=== PATIENT | male | born 1980 | race Caucasian/White ===

== ENCOUNTER 2019-12-01 04:36 | Emergency (ER) | payer OTHER, SELFPAY ==
[2019-12-01 05:04] VITALS: BP 130/88; PULSE 65; RESP 18; TEMP 35.8; O2SAT 97; BMI 23.4
[2019-12-01 05:12] VITALS: BP 130/88; PULSE 65; RESP 18; TEMP 35.8; O2SAT 97
--- NOTE | 2019-12-01 05:26 | ED.PSYCH ---
HPI - Psych General Chief Complaint: Psychiatric Symptoms Stated Complaint: SI WITH PLAN Time Seen by Provider: 12/01/19 05:24 Source: patient Mode of arrival: ambulatory Limitations: no limitations History of Present Illness HPI Narrative: This is a 38-year-old male who presents via EMS with complaints of suicidal ideation and his plan would be to overdose on drugs. He states that he has been admitted previously for depression as well as suicide attempt and thinks that this was maybe a month ago. This evening he took 2 naps and continued to take his psychiatric medication and then felt nauseous and had some nonbloody/ nonbilious vomiting. Related Data Allergies Allergy/AdvReac Type Severity Reaction Status Date / Time No Known Allergies Allergy Unverified 10/26/19 14:49 [No Known Allergies*] Review of Systems Review of Systems: Pertinent positives and negatives as stated in HPI 10 point review systems is otherwise negative. PMFSH Past Medical History Source: nursing notes reviewed Social History Social History Alcohol intake: current Alcohol intake frequency: a few times a month Alcohol type: hard liquor Smoking Status: Current every day smoker Smoked in Last 30 Days: Yes Use of substances other than those prescribed or required for medical reasons: No Advance Directives: No Advance Directives Information Provided: No Physical Exam Vital Signs: Vital Signs: Vital Signs Temp Pulse Resp BP Pulse Ox 12/01/19 06:45 97.9 F 75 18 116/60 97 12/01/19 05:12 96.5 F L 65 18 130/88 97 12/01/19 05:04 96.5 F L 65 18 130/88 97 Body Mass Index 23.4 VITAL SIGNS: Reviewed. GENERAL: Well developed, well nourished, in no acute distress. HEAD: Normocephalic/atraumatic, EYES: PERRLA, EOMI intact without pain, no nystagmus/pallor/icterus noted EARS: Ext canals without abnormality, TMs non-bulging and non-erythematous NOSE: Nares patent bilateral OROPHARYNX: no oral lesions noted, posterior pharynx clear and non-erythematous without noted tonsillar enlargement/erythema/exudates NECK: Supple, no adenopathy LUNGS: Normal breath sounds. No adventitious sounds or accessory muscle use. SpO2<97> CARDIOVASCULAR: Regular rate and rhythm without noted murmurs, no JVD or lower extremity edema. ABDOMEN: Soft, non-tender, non-distended with bowel sounds. No rigidity. No guarding. No palpable masses or hernias noted MUSCULOSKELETAL: No tenderness, deformities, or effusions noted on gross inspection. EXTREMITIES: No cyanosis, clubbing or edema. SKIN: Inspection of the skin reveals no rashes, ulcerations, jaundice, pallor, or petechiae. NEUROLOGIC: Alert and oriented x 4. Strength and sensation to light touch were grossly intact x 4. Course Course Course Narrative: This is a 38-year-old male with history and clinical presentation consistent with depression and suicidal ideation. Patient was evaluated for lithium level abnormality and otherwise medically cleared for further evaluation by the crisis team after review of all investigations. [place] levels are noted to be subtherapeutic. MDM - Psych Restraints Face to Face Assessment: Face to Face Assessment: Current Situation: After assessment of the patient, a review of the pertinent medical record and a discussion with nursing staff, I feel the patient requires a restrain intervention. Reaction To: [] Medical Condition: [] Behavioral State: [] Continued Need: [] Lab Data Result diagrams: 12/01/19 06:11 12/01/19 06:11 Labs: Lab Results 12/01/19 12/01/19 12/01/19 Range/Units 06:11 06:11 06:11 WBC 10.0 (4.8-10.8) X10*3/uL RBC 4.96 (4.60-5.80) X10*6/uL Hgb 15.7 (14.0-18.0) g/dl Hct 47.1 (42-52) % MCV 95.0 (80-98) fL MCH 31.7 (27.0-33.0) pg MCHC 33.3 (31.0-36.0) g/dl RDW 12.9 (11.0-16.0) % Plt Count 244 (160-400) X10*3/uL MPV 10.7 (9.4-12.4) fL Immature Gran % (Auto) 0.4 (0.0-0.4) % Neut % (Auto) 82.3 H (45-73) % Lymph % (Auto) 11.6 L (20-40) % [place] % (Auto) 4.2 (2-11) % Eos % (Auto) 1.2 (0-4) % Baso % (Auto) 0.3 (0-2) % Lymph # (Auto) 1.2 (1.2-4.9) X10*3/uL [place] # (Auto) 0.4 (0.1-1.2) X10*3/uL Eos # (Auto) 0.1 (0.0-0.4) X10*3/uL Baso # (Auto) 0.0 (0.0-0.2) X10*3/uL Abs Immat Gran (auto) 0.04 H (0.00-0.03) X10*3/uL Absolute Neuts (auto) 8.2 (2.0-8.3) X10*3/uL Absolute Nucleated RBC 0.000 (0.0-0.012) X10*3/uL Nucleated RBC % (auto) 0.0 (0.0-0.2) /100WBC Sodium 142 (135-145) mmol/L Potassium 4.1 (3.3-5.1) mmol/l Chloride 106 (96-108) mmol/L Carbon Dioxide 26 (22-29) mmol/L Anion Gap 14 (12-20) BUN 13 (9-16) mg/dL Creatinine 0.98 (0.5-1.4) mg/dL Estim Creat Clear Calc 100.1 Estimated GFR > 60 Random Glucose 108 (60-115) mg/dL Calcium 9.1 (8.4-10.2) mg/dL Total Bilirubin 0.5 (0.0-1.0) mg/dL AST 20 (5-37) U/L ALT 39 (0-40) U/L Alkaline Phosphatase 38 L (39-117) U/L Total Protein 7.3 (6.5-8.0) g/dL Albumin 4.7 (3.5-5.0) g/dL TSH 1.23 (0.32-4.0) mIU/mL Salicylates < 5.0 L (15-30) mg/dL Acetaminophen < 1 (<30) mcg/mL [place] 0.53 L (0.60-1.20) mmol/L Ethyl Alcohol mg/dL 12/01/19 Range/Units 06:12 WBC (4.8-10.8) X10*3/uL RBC (4.60-5.80) X10*6/uL Hgb (14.0-18.0) g/dl Hct (42-52) % MCV (80-98) fL MCH (27.0-33.0) pg MCHC (31.0-36.0) g/dl RDW (11.0-16.0) % Plt Count (160-400) X10*3/uL MPV (9.4-12.4) fL Immature Gran % (Auto) (0.0-0.4) % Neut % (Auto) (45-73) % Lymph % (Auto) (20-40) % [place] % (Auto) (2-11) % Eos % (Auto) (0-4) % Baso % (Auto) (0-2) % Lymph # (Auto) (1.2-4.9) X10*3/uL [place] # (Auto) (0.1-1.2) X10*3/uL Eos # (Auto) (0.0-0.4) X10*3/uL Baso # (Auto) (0.0-0.2) X10*3/uL Abs Immat Gran (auto) (0.00-0.03) X10*3/uL Absolute Neuts (auto) (2.0-8.3) X10*3/uL Absolute Nucleated RBC (0.0-0.012) X10*3/uL Nucleated RBC % (auto) (0.0-0.2) /100WBC Sodium (135-145) mmol/L Potassium (3.3-5.1) mmol/l Chloride (96-108) mmol/L Carbon Dioxide (22-29) mmol/L Anion Gap (12-20) BUN (9-16) mg/dL Creatinine (0.5-1.4) mg/dL Estim Creat Clear Calc Estimated GFR Random Glucose (60-115) mg/dL Calcium (8.4-10.2) mg/dL Total Bilirubin (0.0-1.0) mg/dL AST (5-37) U/L ALT (0-40) U/L Alkaline Phosphatase (39-117) U/L Total Protein (6.5-8.0) g/dL Albumin (3.5-5.0) g/dL TSH (0.32-4.0) mIU/mL Salicylates (15-30) mg/dL Acetaminophen (<30) mcg/mL [place] (0.60-1.20) mmol/L Ethyl Alcohol 126 mg/dL
[2019-12-01] MEDS: Ibuprofen 400 MG TABLET PO (06:17)
[2019-12-01 06:20] LABS: MANUAL DIFF FLAG NO
[2019-12-01 06:21] LABS: Basophils Percent Auto 0.3 % (0-2); Eosinophils Absolute Auto 0.1 X10*3/uL (0.0-0.4); Eosinophils Percent Auto 1.2 % (0-4); Hematocrit 47.1 % (42-52); Hemoglobin 15.7 g/dl (14.0-18.0); Imm Gran Abs Auto 0.04 X10*3/uL (0.00-0.03); Imm Gran Pct Auto 0.4 % (0.0-0.4); Lymphocytes Absolute Auto 1.2 X10*3/uL (1.2-4.9); Lymphocytes Percent Auto 11.6 % (20-40); Mean Corpuscular HGB Conc 33.3 g/dl (31.0-36.0); Mean Corpuscular Hemoglobin 31.7 pg (27.0-33.0); Mean Platelet Volume 10.7 fL (9.4-12.4); Monocytes Absolute Auto 0.4 X10*3/uL (0.1-1.2); Monocytes Percent Auto 4.2 % (2-11); Neutrophils Absolute Auto 8.2 X10*3/uL (2.0-8.3); Neutrophils Percent Auto 82.3 % (45-73); Platelet Count 244 X10*3/uL (160-400); Red Blood Count 4.96 X10*6/uL (4.60-5.80); Red Cell Distribution Width 12.9 % (11.0-16.0)
[2019-12-01 06:41] LABS: Lithium 0.53 mmol/L (0.60-1.20)
[2019-12-01 06:44] LABS: Ethanol 126 mg/dL
[2019-12-01 06:45] VITALS: BP 116/60; PULSE 75; RESP 18; TEMP 36.6; O2SAT 97
[2019-12-01 06:50] LABS: Acetaminophen LAB < 1 mcg/mL (<30); Alanine Aminotransferase 39 U/L (0-40); Albumin Level 4.7 g/dL (3.5-5.0); Alkaline Phosphatase 38 U/L (39-117); Anion Gap 14 (12-20); Aspartate Amino Transferase 20 U/L (5-37); Bilirubin Total 0.5 mg/dL (0.0-1.0); Blood Urea Nitrogen 13 mg/dL (9-16); Calcium 9.1 mg/dL (8.4-10.2); Carbon Dioxide 26 mmol/L (22-29); Chloride 106 mmol/L (96-108); Creatinine Clr Calc Pharmacy 100.1; Estimated Glomerular Filt Rate > 60; Glucose Random 108 mg/dL (60-115); Potassium 4.1 mmol/l (3.3-5.1); Salicylate < 5.0 mg/dL (15-30); Sodium 142 mmol/L (135-145); Total Protein 7.3 g/dL (6.5-8.0)
--- NOTE | 2019-12-01 07:03 | PC.NURSE ---
pt appears to be resting in bed att, rr even/unlabored, skin wpd.
[2019-12-01 07:10] LABS: Thyroid Stimulating Hormone 1.23 mIU/mL (0.32-4.0)
--- NOTE | 2019-12-01 08:58 | PC.NURSE ---
vs updated. pt sts i havent eaten in days , pt offered breakfast tray and other options. pt sts i hope they dont send me home cause im so depressed ill definitely kill myself . wctm.
[2019-12-01 09:10] VITALS: BP 121/57; PULSE 83; RESP 18; TEMP 37.1; O2SAT 97
[2019-12-01 09:27] LABS: Glucose Urine UA NEG (NEG); Leukocyte Esterase Urine NEG (NEG); Nitrite Urine NEG (NEG); Specific Gravity - Urine >= 1.030 (1.005-1.025); Urine Blood NEG (NEG); Urine Ketones NEG (NEG); Urine Protein NEG (NEG-TRACE)
[2019-12-01] MEDS: LORazepam 1 MG TABLET 2 MG PO ×2 (09:27→18:22)
[2019-12-01 09:28] LABS: Appearance Urine CLEAR; Color Urine YELLOW
--- NOTE | 2019-12-01 09:32 | PC.NURSE ---
medicated per emar, toleraing po w/o issue
[2019-12-01 09:49] LABS: Amphetamine Screen Urine Not Detected (Not Detect); Barbiturates, Urine Not Detected (Not Detect); Benzodiazepines Screen Urine Not Detected (Not Detect); Cannabinoid Screen Urine POSITIVE (Not Detect); Cocaine Screen Urine Not Detected (Not Detect); Opiate Screen Urine Not Detected (Not Detect); Phencyclidine Screen Urine Not Detected (Not Detect)
[2019-12-02 06:45] VITALS: BP 123/85; PULSE 72; RESP 17; TEMP 36.6; O2SAT 99
--- NOTE | 2019-12-02 07:19 | PC.NURSE ---
Report received from ROSANA Lange. Pt resting, resp unlabored.
--- NOTE | 2019-12-02 08:06 | PC.NURSE ---
Pt awoke upset, tearful. States he was having nightmares. States he no longer wants to live because he is tired of being afraid. Staff in w/ pt, Dr lopez notified pt states Ativan is helpful.
[2019-12-02] MEDS: LORazepam 1 MG TABLET 2 MG PO (08:23)
[2019-12-02 09:28] VITALS: BP 100/65; PULSE 65; RESP 16; TEMP 36.6; O2SAT 100
--- NOTE | 2019-12-02 15:17 | PC.NURSE ---
Pt out of room, affect anxious, pt requesting Ativan for anxiety. Pt states he would consider taking one of the medications prescribed to him- pt stated yes. provider notified.
[2019-12-02 15:59] VITALS: BP 105/72; PULSE 84; RESP 20; TEMP 36.6; O2SAT 98
[2019-12-02] MEDS: hydrOXYzine HCL 50 MG TABLET PO (17:46)
--- NOTE | 2019-12-02 19:25 | PC.NURSE ---
Patients in bed appears sleeping, no distress observed/reported, respiration +/=/non-labored bilaterally, per report patient is to be reevaluated by [facility] in the morning, seems like patient is not in agreement with Respite option provided by the [facility]. Will continue to monitor.
[2019-12-02] MEDS: risperiDONE 1 MG TABLET PO (22:01)
[2019-12-02] MEDS: Lithium Carbonate 300 MG TABLET 600 MG PO (22:02)
--- NOTE | 2019-12-02 22:13 | PC.NURSE ---
Patient just got woken up for HS PO medication, patient gets startle easily, denied distress, back to bed, will continue to monitor.
--- NOTE | 2019-12-03 07:21 | PC.NURSE ---
Report received from ROSANA Lange. Pt resting, resp unlabored.
[2019-12-03] MEDS: risperiDONE 1 MG TABLET PO (07:28)
[2019-12-03] MEDS: FLUoxetine HCl 20 MG CAPSULE 40 MG PO (07:28)
[2019-12-03] MEDS: Lithium Carbonate 300 MG TABLET 600 MG PO (07:29)
[2019-12-03] MEDS: Folic Acid 1 MG TABLET PO (07:29)
--- NOTE | 2019-12-03 07:37 | PC.NURSE ---
Pt awoke crying, stating that he feels anxious, requesting Ativan. Verbal reassurance offered, am medications given early.
[2019-12-03] MEDS: lamoTRIgine 100 MG TABLET 200 MG PO (07:38)
[2019-12-03 07:53] VITALS: BP 120/74; PULSE 61; RESP 17; TEMP 36.6; O2SAT 97
--- NOTE | 2019-12-03 08:32 | PC.NURSE ---
Pt evaluate by bronson
--- NOTE | 2019-12-03 10:19 | PC.NURSE ---
Pt seen by N, to be discharged per n. Pt tearful but cooperative w/ plan. Pt given list of resources from [facility], and a bus pass.
== END 2019-12-03 10:45 | disposition left against medical advice (07) ==
PROVIDERS: Emergency Provider Student in an Organized Health Care Education/Training Program; PCP Nurse Practitioner Family
DX: F31.9 Bipolar disorder, unspecified (principal); R45.851 Suicidal ideations; F10.10 Alcohol abuse, uncomplicated; Y90.6 Blood alcohol level of 120-199 mg/100 ml; F17.200 Nicotine dependence, unspecified, uncomplicated
CPT/HCPCS: 36415; 80053; 80178; 80307; 80320; 81003; 84443; 85025; 99285; G0480

== ENCOUNTER 2020-05-28 00:11 | Emergency (ER) | payer OTHER, SELFPAY ==
--- NOTE | 2020-05-28 00:26 | ED.BACK ---
HPI - Back Pain/Injury General Chief Complaint: Anxiety Stated Complaint: low back pain Time Seen by Provider: 05/28/20 00:23 Source: patient and EMS Mode of arrival: EMS Limitations: no limitations History of Present Illness HPI Narrative: 39 yo male taking his friend's daily methadone for 3 months stopped taking it 2 days ago unknown amount he feel anxious and like he is withdrawing now elicited complaint: back pain Pertinent past history: prior back pain Onset (ago): year(s) Timing: constant Severity: moderate Similar Symptoms Previously: Yes Quality: dull Location: lumbar spine Radiation: none Relieving factors: none Associated symptoms: other (methadone withdrawal ) Work related injury: No Related Data Home Medications Medication Instructions Recorded Confirmed fluoxetine 40 mg PO DAILY 12/02/19 12/02/19 folic acid 1 mg PO DAILY 12/02/19 12/02/19 lamotrigine [Lamictal] 200 mg PO DAILY 12/02/19 12/02/19 lithium carbonate 600 mg PO BID 12/02/19 12/02/19 risperidone [Risperdal] 1 mg PO BID 12/02/19 12/02/19 Previous Rx's Medication Instructions Recorded fluoxetine 40 mg PO DAILY #30 cap NS 12/02/19 folic acid 1 mg PO DAILY #30 tab NS 12/02/19 lamotrigine 200 mg PO DAILY #30 tab NS 12/02/19 lithium carbonate 600 mg PO BID #120 cap 12/02/19 lithium carbonate 600 mg PO BID #120 cap NS 12/02/19 risperidone 1 mg PO TID #90 tab NS 12/02/19 thiamine HCl (vitamin B1) 100 mg PO DAILY #30 tab NS 12/02/19 Allergies Allergy/AdvReac Type Severity Reaction Status Date / Time No Known Allergies Allergy Unverified 10/26/19 14:49 [No Known Allergies*] Review of Systems Review of Systems: Constitutional : No Weight loss, No Fever, No Chills, ENT/Mouth : No Hearing loss, No Ear Pain, No Nasal Congestion, No Sinus Pain, No Hoarseness, No sore throat, No Rhinorrhea, No Swallowing Difficulty Cardiovascular : No Chest Pain, No SOB Respiratory : No Cough, No Dyspnea Gastrointestinal : No Nausea, No Vomiting, No Diarrhea, No abdominal Pain, No Hematochezia, No Melena Genitourinary : No Dysuria, No Urinary Frequency, No Hematuria, No Urinary Incontinence, Musculoskeletal : positive back pain Skin : No Skin Lesions, No rash Neuro : No Weakness, No Numbness, No Paresthesias, no loss of bowel or bladder incontinence, no saddle anesthesia Psych: + anxiety All other systems reviewed and are negative PMF Past Medical History Medical History (Updated 05/28/20 @ 01:07 by Sharri Garcia DO) Chronic back pain Depression Social History Social History Alcohol intake: current Alcohol intake frequency: does not drink Alcohol type: hard liquor Smoking Status: Current every day smoker Use of substances other than those prescribed or required for medical reasons: Yes Substance Use Type: Marijuana Advance Directives: No Physical Exam Vital Signs: Vital Signs: Last Vital Signs Temp 98.9 F 05/28/20 00:29 Pulse 76 05/28/20 00:29 Resp 15 05/28/20 00:29 BP 128/80 05/28/20 00:29 Pulse Ox 97 05/28/20 00:29 Body Mass Index 21.2 Appearance: Alert. Oriented X3. No acute distress. Anxious Eyes: Pupils equal, round and reactive to light. ENT: Pharynx normal. Neck: Normal inspection. Neck supple. CVS: Normal heart rate and rhythm. Pulses normal. Respiratory: No respiratory distress. Breath sounds normal. Abdomen: Soft and nontender. Skin: Skin warm and dry. Normal skin color. Normal skin turgor. Extremities: No lower extremity edema. No calf ttp Neuro: Oriented X 3. No motor deficit. No sensory deficit. Course Course Course Narrative: CARE team to refer to comprehensive clinic in AM MDM - Back Pain/Injury MDM Narrative Medical decision making narrative: 39 yo male with anxiety, chronic back pain here with anxiety due to using methadone from a friend unknown daily amount for 3 months and then stopped taking it two days ago c/o feeling very sick and anxious - would consider detox, PO ativan and CARE team consult ordered Discharge Plan Discharge Clinical Impression: Acute anxiety, Methadone withdrawal Patient Disposition: Home, Self-Care Instructions: Narcotic Withdrawal (ED) Additional Instructions: return to ED for any worsening symptoms or concerns 72 hours from last methadone dose suboxone can be started Prescriptions: No Action lithium carbonate tablet 600 mg PO BID RF: 0 fluoxetine 40 mg Capsule 40 mg PO DAILY RF: 0 lamotrigine [Lamictal] 200 mg Tablet 200 mg PO DAILY RF: 0 folic acid 1 mg Tablet 1 mg PO DAILY RF: 0 risperidone [Risperdal] 1 mg Tablet 1 mg PO BID RF: 0 risperidone 1 mg tablet 1 mg PO TID Qty: 90 RF: 0 lithium carbonate 300 mg capsule 600 mg PO BID Qty: 120 RF: 0 thiamine HCl (vitamin B1) 100 mg tablet 100 mg PO DAILY Qty: 30 RF: 0 folic acid 1 mg tablet 1 mg PO DAILY Qty: 30 RF: 0 lamotrigine 200 mg tablet 200 mg PO DAILY Qty: 30 RF: 0 fluoxetine 40 mg capsule 40 mg PO DAILY Qty: 30 RF: 0 lithium carbonate 300 mg capsule 600 mg PO BID Qty: 120 RF: 0 Referrals: Nancy Lee MD [Physician] - 1 day (any provider walk in between -)
[2020-05-28 00:29] VITALS: BP 128/80; PULSE 76; RESP 15; TEMP 37.2; O2SAT 97; BMI 21.2
[2020-05-28] MEDS: LORazepam 1 MG TABLET 2 MG PO (00:42)
--- NOTE | 2020-05-28 01:29 | MHC.CARE ---
CARE team consult requested for pt who arrived by ambulance reporting that he is having a panic attack and in active withdrawal from methadone. Pt began using methadone approx 3 months ago, which he was obtaining from a friend, and abruptly stopped using 2 days ago. Prior to that pt had no history of opiate use and was predominantly alcohol dependent (pt is known to this life insurance underwriter and behavioral health department). Pt stated that he was experiencing back pain and began to use methadone to manage the pain, though denied there being any injury or chronic history. Pt reported that he had quit drinking and that he stopped taking the methadone because he doesn't want to be on any substances. This life insurance underwriter spoke with pt about MAT, such as suboxone maintenance or a methadone taper. Pt is interested in whatever will make this stop. This life insurance underwriter will send pt's information to the [facility] ([facility]) staff for follow up and pt was given pamphlet for the program and told to call first thing in the morning or between 10am and 12pm for walk-in hours. Due to pt's last use of methadone he is not a candidate for initiating suboxone in the ED. This was explained to pt by both the ED physician and this life insurance underwriter. Plan will be for pt to discharge from ED and follow up with [facility] in the morning.
[2020-05-28 02:33] LABS: Amphetamine Screen Urine Not Detected (Not Detect); Barbiturates, Urine Not Detected (Not Detect); Benzodiazepines Screen Urine Not Detected (Not Detect); Cannabinoid Screen Urine POSITIVE (Not Detect); Cocaine Screen Urine POSITIVE (Not Detect); Opiate Screen Urine Not Detected (Not Detect); Phencyclidine Screen Urine Not Detected (Not Detect)
== END 2020-05-28 03:08 | disposition home or self-care (01) ==
PROVIDERS: Emergency Provider Emergency Medicine
DX: F41.9 Anxiety disorder, unspecified (principal); F19.930 Other psychoactive substance use, unspecified with withdrawal, uncomplicated; F14.980 Cocaine use, unspecified with cocaine-induced anxiety disorder; F12.90 Cannabis use, unspecified, uncomplicated; G89.29 Other chronic pain; M54.5 Low back pain; F10.20 Alcohol dependence, uncomplicated
CPT/HCPCS: 80307; 99284; 99285

== ENCOUNTER 2022-04-28 21:32 | Emergency (ER) | payer OTHER, SELFPAY ==
[2022-04-28 21:39] VITALS: BP 113/84; PULSE 105; RESP 18; TEMP 36.6; O2SAT 94; BMI 23.5
[2022-04-28 21:54] LABS: MANUAL DIFF FLAG NO
[2022-04-28 21:56] LABS: Basophils Absolute Auto 0.1 X10*3/uL (0.0-0.2); Basophils Percent Auto 0.4 % (0-2); Eosinophils Percent Auto 0.2 % (0-4); Hematocrit 45.8 % (42.0-52.0); Hemoglobin 16.4 g/dl (14.0-18.0); Imm Gran Abs Auto 0.04 X10*3/uL (0.00-0.03); Imm Gran Pct Auto 0.3 % (0.0-0.4); Lymphocytes Absolute Auto 1.9 X10*3/uL (1.2-4.9); Lymphocytes Percent Auto 15.5 % (20-40); Mean Corpuscular HGB Conc 35.8 g/dl (31.0-36.0); Mean Corpuscular Hemoglobin 33.3 pg (27.0-33.0); Mean Corpuscular Volume 93.1 fL (80.0-98.0); Mean Platelet Volume 9.9 fL (9.4-12.4); Monocytes Absolute Auto 0.7 X10*3/uL (0.1-1.2); Monocytes Percent Auto 5.6 % (2-11); Neutrophils Absolute Auto 9.4 x10*3/uL (2.0-8.3); Platelet Count 310 X10*3/uL (160-400); Red Blood Count 4.92 X10*6/uL (4.60-5.80); Red Cell Distribution Width 13.7 % (11.0-16.0); White Blood Count 12.1 X10*3/uL (4.8-10.8)
--- NOTE | 2022-04-28 21:59 | ED.ALCOHOL ---
HPI - Alcohol General Chief Complaint: ETOH/Substance Use Stated Complaint: SI Time Seen by Provider: 04/28/22 21:46 Source: EMS Mode of arrival: EMS Limitations: other (Intoxicated, combative) History of Present Illness HPI narrative: Patient comes to the emergency room via EMS. According to EMS, the patient was outside a restaurant in [place], PD was called, patient made suicidal statements. EMS was called and brought to the emergency room. Here in the ED, patient is combative, belligerent, trying to fight security. Related Data Home Medications Medication Instructions Recorded Confirmed fluoxetine 40 mg capsule 1 cap PO QAM 04/28/22 04/28/22 folic acid 1 mg tablet 1 tab PO DAILY 04/28/22 04/28/22 lamotrigine 200 mg tablet 1 tab PO BEDTIME 04/28/22 04/28/22 lithium carbonate 600 mg capsule 1 cap PO BID 04/28/22 04/28/22 thiamine HCl (vitamin B1) 100 mg 1 tab PO DAILY 04/28/22 04/28/22 tablet Allergies Allergy/AdvReac Type Severity Reaction Status Date / Time No Known Allergies Allergy Unverified 10/26/19 14:49 [No Known Allergies*] Review of Systems Review of Systems: Yes Other (Combative, intoxicated) [facility] Past Medical History Medical History Alcohol abuse Bipolar disorder Chronic back pain Depression Social History Social History Alcohol intake: current Alcohol intake frequency: does not drink Alcohol type: hard liquor Substance Use Type: Marijuana Physical Exam ED Vital Signs: Vital Signs - 24 hr 04/28/22 21:39 Temperature 98 F Pulse Rate 105 H Respiratory Rate 18 Blood Pressure 113/84 Pulse Oximetry 94 Oxygen Delivery Method Room Air BMI result Body Mass Index 23.5 Const Other: Appearance: Alert. Oriented X3. Combative, belligerent, trying to punch security Eyes: Pupils equal, round and reactive to light. ENT: Pharynx normal. Neck: Normal inspection. Neck supple. No lymph nodes noted. No crepitus CVS: Normal heart rate and rhythm. Pulses normal. Normal S1 and S2 Respiratory: No respiratory distress. Breath sounds normal. No Wheezing. No rales Abdomen: Soft and nontender. No rigidity. No distention. Skin: Skin warm and dry. Normal skin color. Normal skin turgor. Extremities: No lower extremity edema. No Lacerations. No Rash Neuro: Oriented X 3. No motor deficit. No sensory deficit. Moving all extremities. No slurred speech. CN 2 through 12 grossly intact Psych: Agitated, intoxicated, belligerent, combative Course Course Course Narrative: -this patient was very aggressive and threatening staff, patient had to be physically and chemically restrained. -patient was given 50 mg of Benadryl, 5 mg of Haldol, 2 mg of Ativan all IM -of patient's labs pending -care team consult pending -physician observation started at 22:00 Medical Decision Making Lab Data 04/28/22 21:47 04/28/22 21:47 Labs: Lab Results 04/28/22 Range/Units 21:47 WBC 12.1 H (4.8-10.8) X10*3/uL RBC 4.92 (4.60-5.80) X10*6/uL Hgb 16.4 (14.0-18.0) g/dl Hct 45.8 (42.0-52.0) % MCV 93.1 (80.0-98.0) fL MCH 33.3 H (27.0-33.0) pg MCHC 35.8 (31.0-36.0) g/dl RDW 13.7 (11.0-16.0) % Plt Count 310 (160-400) X10*3/uL MPV 9.9 (9.4-12.4) fL Immature Gran % (Auto) 0.3 (0.0-0.4) % Neut % (Auto) 78.0 H (45-73) % Lymph % (Auto) 15.5 L (20-40) % [place] % (Auto) 5.6 (2-11) % Eos % (Auto) 0.2 (0-4) % Baso % (Auto) 0.4 (0-2) % Lymph # (Auto) 1.9 (1.2-4.9) X10*3/uL [place] # (Auto) 0.7 (0.1-1.2) X10*3/uL Eos # (Auto) 0.0 (0.0-0.4) X10*3/uL Baso # (Auto) 0.1 (0.0-0.2) X10*3/uL Abs Immat Gran (auto) 0.04 H (0.00-0.03) X10*3/uL Absolute Neuts (auto) 9.4 H (2.0-8.3) x10*3/uL Absolute Nucleated RBC 0.000 (0.0-0.012) X10*3/uL Nucleated RBC % (auto) 0.0 (0.0-0.2) /100WBC Medications Administered Discontinued Medications Generic Name Dose Route Start Last Admin Trade Name Freq PRN Reason Stop Dose Admin Diphenhydramine HCl 50 mg 04/28/22 21:50 04/28/22 22:00 Diphenhydramine Hcl 50 Mg/Ml Vial IM 04/28/22 21:51 50 mg ONCE ONE Administration Haloperidol Lactate 5 mg 04/28/22 21:50 04/28/22 22:00 Haloperidol Lactate 5 Mg/Ml Vial IM 04/28/22 21:51 5 mg STAT STA Administration Lorazepam 2 mg 04/28/22 21:50 04/28/22 22:00 Lorazepam 2 Mg/Ml Vial IM 04/28/22 21:51 2 mg STAT STA Administration Discharge Plan Discharge Clinical Impression: Alcoholic intoxication, Suicidal ideation Patient Disposition: Still a Patient Prescriptions: No Action fluoxetine 40 mg capsule 1 cap PO QAM lamotrigine 200 mg tablet 1 tab PO BEDTIME thiamine HCl (vitamin B1) 100 mg tablet 1 tab PO DAILY lithium carbonate 600 mg capsule 1 cap PO BID folic acid 1 mg tablet 1 tab PO DAILY
[2022-04-28 22:00] VITALS: RESP 20
[2022-04-28] MEDS: LORazepam 2 MG/ML VIAL IM (22:00)
[2022-04-28] MEDS: Haloperidol Lactate 5 MG/ML VIAL IM (22:00)
[2022-04-28] MEDS: diphenhydrAMINE HCL 50 MG/ML VIAL IM (22:00)
[2022-04-28 22:15] VITALS: RESP 20
[2022-04-28 22:21] LABS: COVID-19 Test Negative (Negative); IDNOW Serial# 6674DD1D
[2022-04-28 22:23] LABS: Acetaminophen LAB < 17 mcg/mL (<30); Alanine Aminotransferase 31 U/L (0-40); Albumin Level 4.5 g/dL (3.5-5.0); Alkaline Phosphatase 64 U/L (39-117); Anion Gap 20 (12-20); Aspartate Amino Transferase 18 U/L (5-37); Bilirubin Total 0.5 mg/dL (0.0-1.0); Blood Urea Nitrogen 9 mg/dL (9-16); Calcium 9.2 mg/dL (8.4-10.2); Carbon Dioxide 19 mmol/L (22-29); Chloride 105 mmol/L (96-108); Creatinine Clr Calc Pharmacy 94.7; Estimated Glomerular Filt Rate > 60; Ethanol 422 mg/dL; Glucose Random 186 mg/dL (60-115); Potassium 3.6 mmol/L (3.3-5.1); Salicylate < 5.0 mg/dL (15-30); Sodium 140 mmol/L (135-145); Total Protein 6.9 g/dL (6.5-8.0)
[2022-04-28 22:30] VITALS: RESP 20
[2022-04-28 22:42] LABS: Lithium < 0.10 mmol/L (0.60-1.20)
[2022-04-28 22:45] VITALS: RESP 20
[2022-04-28 23:00] VITALS: RESP 20
--- NOTE | 2022-04-29 05:15 | PC.NURSE ---
Patient was restraint at 2200 for increased aggression and exhibiting combative unsafe behavior, Haldol 5 mg IM, Ativan 2 mg IM, and Benadryl 50 mg IM @ 2200 with + effect, physical restraint discontinued at 2230, patient slept through the night, no distress observed/reported, med rec completed/pending provider's approval, care consult ordered pending evaluation in the morning, will continue to monitor.
[2022-04-29] MEDS: LORazepam 1 MG TABLET 2 MG PO ×4 (06:23→20:53)
[2022-04-29 06:25] VITALS: BP 117/81; PULSE 69; RESP 16; TEMP 36.6; O2SAT 97
--- NOTE | 2022-04-29 07:01 | PC.NURSE ---
patient appears to remain asleep at present respirations are even and unlabored patient appears in no distress.
[2022-04-29 08:32] VITALS: RESP 16
[2022-04-29 09:54] VITALS: BP 106/71; PULSE 92; RESP 12; TEMP 36.9; O2SAT 95
[2022-04-29 14:00] VITALS: RESP 18
[2022-04-29 14:05] LABS: Amphetamine Screen Urine Not Detected (Not Detect); Barbiturates, Urine Not Detected (Not Detect); Benzodiazepines Screen Urine Not Detected (Not Detect); Cannabinoid Screen Urine POSITIVE (Not Detect); Cocaine Screen Urine Not Detected (Not Detect); Fentanyl, urine Not Detected (Not Detect); Opiate Screen Urine Not Detected (Not Detect); Phencyclidine Screen Urine Not Detected (Not Detect)
[2022-04-29 20:20] LABS: Appearance Urine Clear; Color Urine Yellow; Glucose Urine UA Negative (Negative); Leukocyte Esterase Urine Trace (Negative); Nitrite Urine Positive (Negative); PH 6.5 (5.0-9.0); Specific Gravity - Urine 1.025 (1.005-1.025); UMIC TRIGGER UA YES; Urine Blood Negative (Negative); Urine Ketones Trace mg/dL (Negative); Urine Protein Trace mg/dL (Neg-Trace)
[2022-04-29 20:23] VITALS: BP 125/82; PULSE 85; RESP 20; TEMP 38; O2SAT 96
[2022-04-29 20:27] LABS: Bacteria Urine 4+ (None Seen); Hyaline Casts Urine 0-2 /LPF (0-2); Squamous Epithelial Cell Urine 0-2 /HPF (0-2); WBC Urine 0-5 /HPF (0-5)
--- NOTE | 2022-04-29 20:56 | MHC.CARE ---
statewide detox bed[facility] exhausted, no beds available
--- NOTE | 2022-04-30 01:40 | PC.NURSE ---
Patient is in bed appears sleeping, Ativan 2 mg PO administered at 2052 for comfort, no distress observed/reported, disposition detox bed search and recovery team coordinating the placement, behavior non concerning, will continue to monitor.
--- NOTE | 2022-04-30 01:46 | PC.NURSE ---
Med rec completed/pending provider's approval
[2022-04-30 02:18] VITALS: TEMP 37.2
[2022-04-30 02:26] VITALS: BP 124/90; PULSE 85; RESP 16; TEMP 37.2; O2SAT 97
--- NOTE | 2022-04-30 10:50 | MHC.RECOVRN ---
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 T/W reviewed recovery resources w/ patient. provided list of shelters in area. Patient verbalized understanding. Recovery resources left at bedside. Original Note: This junior underwriter met w/ patient, patient was laying in bed, alert, awake. Patient reports has been drinking on/off for many years. Patient states amounts vary from a few nips to sleeves of nips daily. 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 Patient reports no other substances used. Patient states has not been treatment in the past. Patient reports in the past has tried Naltrexone and Vivitrol, patient states naltrexone and vivitrol did not help with decreasing nor stopping alcohol use. Patient states interested in detox. T/W to start detox bedsearch.
[2022-04-30] MEDS: LORazepam 1 MG TABLET 2 MG PO (11:06)
--- NOTE | 2022-04-30 12:19 | PC.NURSE ---
patient alert, oriented x4. denies SI or HI. declined detox bed at [facility]. Recovery team aware; giving pt list of community resources to reach out to.
== END 2022-04-30 12:30 | disposition home or self-care (01) ==
PROVIDERS: Emergency Provider Emergency Medicine
DX: F10.120 Alcohol abuse with intoxication, uncomplicated (principal); Y90.8 Blood alcohol level of 240 mg/100 ml or more; R45.851 Suicidal ideations; R45.6 Violent behavior; F91.8 Other conduct disorders; Z78.1 Physical restraint status; Z20.822 Contact with and (suspected) exposure to COVID-19; Z79.899 Other long term (current) drug therapy
CPT/HCPCS: 36415; 80053; 80143; 80178; 80179; 80307; 81001; 82077; 85025; 87635; 96372; 99284; 99285; J1200; J2060; S9485

== ENCOUNTER 2022-04-30 15:13 | Inpatient (IN) | payer OTHER, SELFPAY ==
[2022-04-30 15:38] VITALS: BP 130/80; BP 131/84; PULSE 94; PULSE 95; RESP 19; TEMP 37.1; O2SAT 93; O2SAT 99; BMI 22.1
--- NOTE | 2022-04-30 15:52 | ED.PSYCH ---
HPI - Psych General Chief Complaint: Psychiatric Symptoms Stated Complaint: SEC 12 PER CFD Time Seen by Provider: 04/30/22 15:52 Source: patient and EMS Mode of arrival: EMS Limitations: no limitations History of Present Illness HPI Narrative: 41-year-old male presents via EMS under Section 12 for suicidal ideation and abnormal behavior while standing outside of a liquor store. MD complaint: suicidal ideation, feels depressed, substance abuse and alcohol abuse Onset (ago): year(s) Duration: constant History of same: Yes Relieving factors: none Exacerbating factors: alcohol and drug use Context: recent alcohol abuse Associated psychiatric symptoms: depression and suicidal ideation Associated symptoms: denies other symptoms Treatments prior to arrival: placed on mental health hold If self harm: admits thoughts of self harm and has plan Related Data Home Medications Medication Instructions Recorded Confirmed fluoxetine 40 mg capsule 1 cap PO QAM 04/28/22 04/30/22 folic acid 1 mg tablet 1 tab PO DAILY 04/28/22 04/30/22 lamotrigine 200 mg tablet 1 tab PO BEDTIME 04/28/22 04/30/22 lithium carbonate 600 mg capsule 1 cap PO BID 04/28/22 04/30/22 thiamine HCl (vitamin B1) 100 mg 1 tab PO DAILY 04/28/22 04/30/22 tablet Allergies Allergy/AdvReac Type Severity Reaction Status Date / Time No Known Allergies Allergy Unverified 10/26/19 14:49 [No Known Allergies*] Review of Systems Review of Systems: Constitutional: No Fever, No Chills Cardiovascular: No Chest Pain, No SOB Respiratory: No Cough, No Sputum, No Dyspnea Psych: positive Anxiety, positive Depression, positive SI positive polysubstance abuse Yes all other systems are reviewed and are negative [facility] Past Medical History Attestation statement: The following information was validated with the patient. Source: old records reviewed Medical History Alcohol abuse Bipolar disorder Chronic back pain Depression Social History Social History Alcohol intake: current Alcohol intake frequency: does not drink Alcohol type: hard liquor Substance Use Type: Marijuana Advance Directives: No Advance Directives Information Provided: No Healthcare Proxy: No Guardian: No Physical Exam Vital Signs: Vital Signs: Last Vital Signs Temp 98.2 F 04/30/22 22:17 Pulse 92 04/30/22 22:17 Resp 17 04/30/22 22:17 BP 114/73 04/30/22 22:17 Pulse Ox 95 04/30/22 22:17 O2 Del Method Room Air 04/30/22 22:17 BMI result Body Mass Index 22.1 Appearance: Alert. Intoxicated. Eyes: Pupils equal, round and reactive to light. ENT: Pharynx normal. Neck: Normal inspection. Neck supple. CVS: Normal heart rate and rhythm. Pulses normal. Respiratory: No respiratory distress. Breath sounds normal. Skin: Skin warm and dry. Normal skin color. Normal skin turgor. Extremities: Moves all extremities against resistance. Neuro: No motor deficit. No sensory deficit. Cranial nerves 2-12 intact Course Course Course Narrative: 41-year-old male presents via EMS under Section 12 by the [place] [employer] for suicidal ideation, and erratic behavior. Patient was just discharged from this facility and was to present to a detox facility however he decided to go to the liquor store and start drinking alcohol. Patient told the police that he wanted to jump off of a bridge. Labs and crisis consult pending 22:39 patient is inpatient bed search Section 12. Physician observation at this time. Medications Administered Generic Name Dose Route Start Last Admin Trade Name Freq PRN Reason Stop Dose Admin Lorazepam 2 mg 04/30/22 20:39 04/30/22 22:12 Lorazepam 1 Mg Tablet PO 2 mg Q3H PRN Administration Alcohol Withdrawal Discontinued Medications Generic Name Dose Route Start Last Admin Trade Name Freq PRN Reason Stop Dose Admin Nicotine Polacrilex 2 mg 04/30/22 23:13 04/30/22 23:17 Nicotine Polacrilex 2 Mg Gum BUCCAL 04/30/22 23:14 2 mg ONCE ONE Administration Medical Decision Making Differential Diagnosis Differential Diagnoses: The differential diagnosis associated with the presentation includes SI, substance Admission/Observation Consideration of admission/observation: Escalation of care including admission/observation considered May require M5 admission Consult Healthcare Provider Management of the patient was discussed with: Behavioral Health Provider Lab Data [facility] Lab Attestation statement: I reviewed the patient's lab results. Labs: Lab Results 04/30/22 04/30/22 04/30/22 Range/Units 16:44 18:37 19:48 Urine Opiates Screen Not Detected (Not Detect) Urine Fentanyl Screen Not Detected (Not Detect) Ur Barbiturates Screen Not Detected (Not Detect) Ur Phencyclidine Scrn Not Detected (Not Detect) Ur Amphetamines Screen Not Detected (Not Detect) U Benzodiazepines Scrn Not Detected (Not Detect) Urine Cocaine Screen Not Detected (Not Detect) U Marijuana (THC) Screen POSITIVE H (Not Detect) Ethyl Alcohol 244 mg/dL COVID-19 ([facility]ELO) Negative (Negative) COVID-19 Clin Com See Note External Record Review External record reviewed: Inpatient record, Outpatient record and Prior outpatient labs Social Determinants Patient?s care significantly limited by Social Determinants of Health including: Other Social Determinant of Health Discharge Plan Discharge Clinical Impression: Alcoholic intoxication, Chronic schizophrenia, Suicidal ideation, Bipolar disorder Patient Disposition: Still a Patient Prescriptions: No Action fluoxetine 40 mg capsule 1 cap PO QAM lamotrigine 200 mg tablet 1 tab PO BEDTIME thiamine HCl (vitamin B1) 100 mg tablet 1 tab PO DAILY lithium carbonate 600 mg capsule 1 cap PO BID folic acid 1 mg tablet 1 tab PO DAILY Interventions: [place]-Suicide Risk Severity Scale Last Done: 04/30/22 17:27
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
[2022-04-30 17:18] LABS: Ethanol 244 mg/dL
[2022-04-30 19:07] LABS: Amphetamine Screen Urine Not Detected (Not Detect); Barbiturates, Urine Not Detected (Not Detect); Benzodiazepines Screen Urine Not Detected (Not Detect); Cannabinoid Screen Urine POSITIVE (Not Detect); Cocaine Screen Urine Not Detected (Not Detect); Fentanyl, urine Not Detected (Not Detect); Opiate Screen Urine Not Detected (Not Detect); Phencyclidine Screen Urine Not Detected (Not Detect)
[2022-04-30 20:16] LABS: COVID-19 Test Negative (Negative); IDNOW Serial# BCCEAD1C
[2022-04-30] MEDS: LORazepam 1 MG TABLET 2 MG PO (22:12)
[2022-04-30 22:17] VITALS: BP 114/73; PULSE 92; RESP 17; TEMP 36.8; O2SAT 95
[2022-04-30] MEDS: Nicotine Polacrilex 2 MG GUM BUCCAL (23:17)
--- NOTE | 2022-05-01 06:46 | PC.NURSE ---
Patient slept through the night, no distress observed/reported, Ativan 2 mg administered at 2212 with + effect, behavior non concerning at this time, disposition per care team is section 12 inpatient bed search, med rec completed/pending provider's approval, will continue to monitor.
[2022-05-01] MEDS: LORazepam 1 MG TABLET 2 MG PO ×4 (09:31→21:29)
[2022-05-01 10:16] VITALS: BP 126/79; PULSE 93; RESP 15; TEMP 36.5; O2SAT 98
[2022-05-01 10:22] LABS: Hematocrit 47.4 % (42.0-52.0); Hemoglobin 17.2 g/dl (14.0-18.0); Mean Corpuscular HGB Conc 36.3 g/dl (31.0-36.0); Mean Corpuscular Hemoglobin 33.5 pg (27.0-33.0); Mean Corpuscular Volume 92.2 fL (80.0-98.0); Mean Platelet Volume 10.1 fL (9.4-12.4); Platelet Count 252 X10*3/uL (160-400); Red Blood Count 5.14 X10*6/uL (4.60-5.80); Red Cell Distribution Width 13.2 % (11.0-16.0); White Blood Count 7.6 X10*3/uL (4.8-10.8)
[2022-05-01 10:33] LABS: Anion Gap 16 (12-20); Blood Urea Nitrogen 16 mg/dL (9-16); Calcium 9.6 mg/dL (8.4-10.2); Carbon Dioxide 24 mmol/L (22-29); Chloride 102 mmol/L (96-108); Creatinine Clr Calc Pharmacy 111.7; Estimated Glomerular Filt Rate > 60; Glucose Random 122 mg/dL (60-115); Potassium 4.1 mmol/L (3.3-5.1); Sodium 138 mmol/L (135-145)
--- NOTE | 2022-05-01 11:08 | PC.NURSE ---
pt medicated with Ativan per MAR - pts CIWA 5.
[2022-05-01] MEDS: Ondansetron ODT 4 MG TAB.RAPDIS TRANSLINGU ×2 (13:16→20:24)
[2022-05-01] MEDS: Nicotine Polacrilex 2 MG GUM BUCCAL ×4 (13:16→20:41)
[2022-05-01 16:12] VITALS: BP 136/93; PULSE 79; RESP 18; TEMP 37; O2SAT 96
[2022-05-01] MEDS: FLUoxetine HCl 20 MG CAPSULE 40 MG PO (17:05)
[2022-05-01] MEDS: Milk of Magnesia 30 ML ORAL.SUSP PO (17:05)
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
[2022-05-01] MEDS: lamoTRIgine 100 MG TABLET 200 MG PO (21:29)
[2022-05-01] MEDS: traZODone HCL 50 MG TABLET PO (21:29)
[2022-05-01] MEDS: Lithium Carbonate 300 MG CAPSULE 600 MG PO (21:29)
[2022-05-02] MEDS: LORazepam 1 MG TABLET 2 MG PO ×2 (06:30→08:55)
--- NOTE | 2022-05-02 06:48 | PC.NURSE ---
While delivering med to roommate, this nurse observes patient wake in a panic, jumping up from bed and running hands along sheets as if wiping things away. When approached patient states I need help, you have to help me. Patient able to calm with redirection. CIWA score 20, including headache, visual hallucinations ( seeing things floating by in the corner of my eyes ), mild tremor with arms extended, numbness to feet. Ativan administered per order. Physician notified.
[2022-05-02] MEDS: Lithium Carbonate 300 MG CAPSULE 600 MG PO ×2 (08:21→20:36)
[2022-05-02] MEDS: FLUoxetine HCl 20 MG CAPSULE 40 MG PO (08:21)
[2022-05-02] MEDS: Thiamine HCL 100 MG TABLET PO (08:22)
[2022-05-02] MEDS: Folic Acid 1 MG TABLET PO (08:22)
[2022-05-02] MEDS: hydrOXYzine HCL 25 MG TABLET PO ×2 (08:22→18:22)
[2022-05-02] MEDS: Nicotine Polacrilex 2 MG GUM BUCCAL ×5 (08:22→20:38)
[2022-05-02] MEDS: Multivitamin TABLET 1 TAB PO (08:22)
[2022-05-02 08:53] LABS: Estimated Average Glucose 94 mg/dL; Hemoglobin A1c % 4.9 %
[2022-05-02 09:00] LABS: Cholesterol 203 mg/dL; HDL Cholesterol 63 mg/dL; LDL Cholesterol Calculated 122 mg/dl; Magnesium 2.5 mg/dL (1.6-2.6); Triglycerides 92 mg/dL
[2022-05-02 09:05] VITALS: BP 125/83; PULSE 92; RESP 16; TEMP 36.6; O2SAT 95
[2022-05-02 09:28] LABS: Folate 3.6 ng/mL (> or = 4.0); Free T4 (Free Thyroxine) 1.02 ng/dL (0.71-1.85); Thyroid Stimulating Hormone 1.72 uIU/mL (0.32-4.0); Vitamin B12 308 pg/mL (200-900)
[2022-05-02] MEDS: HaloperidoL 5 MG TABLET PO ×2 (10:24→19:52)
[2022-05-02] MEDS: LORazepam 1 MG TABLET PO ×3 (12:49→20:35)
[2022-05-02] MEDS: Gabapentin 300 MG CAPSULE PO ×2 (14:40→20:35)
[2022-05-02 16:09] VITALS: BP 123/78; PULSE 85; RESP 16; TEMP 36.7; O2SAT 97
--- NOTE | 2022-05-02 16:22 | P.PNPSI_ITS ---
Subjective Subjective Reason For Visit: Depression, PTSD, Alcohol use disorder, Violence Diagnostics Vital Signs (24Hr): Vital Signs - 24 hr 05/02/22 09:05 05/02/22 16:09 Temperature 97.8 F 98.0 F Pulse Rate 92 85 Respiratory Rate 16 16 Blood Pressure 125/83 123/78 Pulse Oximetry 95 97 Oxygen Delivery Method Room Air Room Air BMI result Body Mass Index 22.1 Labs 05/01/22 10:01 05/01/22 10:01 Labs: Laboratory Results - last 48 hr 04/30/22 04/30/22 04/30/22 16:44 18:37 19:48 WBC RBC Hgb Hct MCV MCH MCHC RDW Plt Count MPV Absolute Nucleated RBC Nucleated RBC % (auto) Sodium Potassium Chloride Carbon Dioxide Anion Gap BUN Creatinine Estim Creat Clear Calc Estimated GFR Random Glucose Estimat Average Glucose Hemoglobin A1c % Calcium Magnesium Triglycerides Cholesterol LDL Cholesterol, Calc HDL Cholesterol Vitamin B12 Folate TSH Free T4 Urine Opiates Screen Not Detected Urine Fentanyl Screen Not Detected Ur Barbiturates Screen Not Detected Ur Phencyclidine Scrn Not Detected Ur Amphetamines Screen Not Detected U Benzodiazepines Scrn Not Detected Urine Cocaine Screen Not Detected U Marijuana (THC) Screen POSITIVE H Ethyl Alcohol 244 COVID-19 ([facility]) Negative COVID-19 Clin Com See Note 05/01/22 05/01/22 05/02/22 10:01 10:01 08:10 WBC 7.6 RBC 5.14 Hgb 17.2 Hct 47.4 MCV 92.2 MCH 33.5 H MCHC 36.3 H RDW 13.2 Plt Count 252 MPV 10.1 Absolute Nucleated RBC 0.000 Nucleated RBC % (auto) 0.0 Sodium 138 Potassium 4.1 Chloride 102 Carbon Dioxide 24 Anion Gap 16 BUN 16 Creatinine 0.82 Estim Creat Clear Calc 111.7 Estimated GFR > 60 Random Glucose 122 H Estimat Average Glucose 94 Hemoglobin A1c % 4.9 Calcium 9.6 Magnesium Triglycerides Cholesterol LDL Cholesterol, Calc HDL Cholesterol Vitamin B12 Folate TSH Free T4 Urine Opiates Screen Urine Fentanyl Screen Ur Barbiturates Screen Ur Phencyclidine Scrn Ur Amphetamines Screen U Benzodiazepines Scrn Urine Cocaine Screen U Marijuana (THC) Screen Ethyl Alcohol COVID-19 ([facility]ELO) COVID-19 Clin Com 05/02/22 08:10 WBC RBC Hgb Hct MCV MCH MCHC RDW Plt Count MPV Absolute Nucleated RBC Nucleated RBC % (auto) Sodium Potassium Chloride Carbon Dioxide Anion Gap BUN Creatinine Estim Creat Clear Calc Estimated GFR Random Glucose Estimat Average Glucose Hemoglobin A1c % Calcium Magnesium 2.5 Triglycerides 92 Cholesterol 203 LDL Cholesterol, Calc 122 HDL Cholesterol 63 Vitamin B12 308 Folate 3.6 L TSH 1.72 Free T4 1.02 Urine Opiates Screen Urine Fentanyl Screen Ur Barbiturates Screen Ur Phencyclidine Scrn Ur Amphetamines Screen U Benzodiazepines Scrn Urine Cocaine Screen U Marijuana (THC) Screen Ethyl Alcohol COVID-19 ([facility]) COVID-19 Clin Com Medications Medications Current Medications Acetaminophen (Acetaminophen 325 Mg Tablet) 650 mg PO Q6H PRN PRN Reason: Headache/Pain Mild Scale (1-3) Al Hydroxide/Mg Hydroxide (Magnesium Hydrox/Alum Hydrox 30 Ml Oral.Susp) 30 ml PO Q6H PRN PRN Reason: Heartburn/Nausea Diphenhydramine HCl (Diphenhydramine Hcl 25 Mg Capsule) 50 mg PO Q4H PRN PRN Reason: agitation Fluoxetine HCl (Fluoxetine Hcl 20 Mg Capsule) 40 mg PO DAILY [facility] Last Admin: 05/02/22 08:21 Dose: 40 mg Folic Acid (Folic Acid 1 Mg Tablet) 1 mg PO DAILY [facility] Last Admin: 05/02/22 08:22 Dose: 1 mg Gabapentin (Gabapentin 300 Mg Capsule) 300 mg PO TID [facility] Last Admin: 05/02/22 14:40 Dose: 300 mg Haloperidol (Haloperidol 5 Mg Tablet) 5 mg PO Q4H PRN PRN Reason: agitation Last Admin: 05/02/22 10:24 Dose: 5 mg Hydroxyzine HCl (Hydroxyzine Hcl 25 Mg Tablet) 25 mg PO Q6H PRN PRN Reason: Anxiety Last Admin: 05/02/22 08:22 Dose: 25 mg Lamotrigine (Lamotrigine 100 Mg Tablet) 200 mg PO BEDTIME [facility] Last Admin: 05/01/22 21:29 Dose: 200 mg [place] Carbonate ([place] Carbonate 300 Mg Capsule) 600 mg PO BID [facility] Last Admin: 05/02/22 08:21 Dose: 600 mg Lorazepam (Lorazepam 1 Mg Tablet) 2 mg PO Q3H PRN PRN Reason: Alcohol Withdrawal Last Admin: 05/02/22 06:30 Dose: 2 mg Lorazepam (Lorazepam 1 Mg Tablet) 1 mg PO QID [facility] Last Admin: 05/02/22 16:00 Dose: 1 mg Magnesium Hydroxide (Milk Of Magnesia 30 Ml Oral.Susp) 30 ml PO DAILY PRN PRN Reason: Constipation Last Admin: 05/01/22 17:05 Dose: 30 ml Multivitamins/Vitamin C (Multivitamin Tablet) 1 tab PO DAILY [facility] Last Admin: 05/02/22 08:22 Dose: 1 tab Nicotine Polacrilex (Nicotine Polacrilex 2 Mg Gum) 2 mg BUCCAL Q2H PRN PRN Reason: Nicotine Cravings Last Admin: 05/02/22 14:52 Dose: 2 mg Ondansetron HCl (Ondansetron Odt 4 Mg Tab.Rapdis) 4 mg TRANSLINGU Q8H PRN PRN Reason: nausea Last Admin: 05/01/22 20:24 Dose: 4 mg Thiamine HCl (Thiamine Hcl 100 Mg Tablet) 100 mg PO DAILY [facility] Last Admin: 05/02/22 08:22 Dose: 100 mg Trazodone HCl (Trazodone Hcl 50 Mg Tablet) 50 mg PO BEDTIME MRX1 PRN PRN Reason: Insomnia Last Admin: 05/01/22 21:29 Dose: 50 mg Allergies Allergies Allergy/AdvReac Type Severity Reaction Status Date / Time No Known Allergies Allergy Unverified 10/26/19 14:49 [No Known Allergies*] Assessment & Plan Time Spent With Patient Time: Total time managing care of this patient today ____ minutes.
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
[2022-05-02] MEDS: lamoTRIgine 100 MG TABLET 200 MG PO (20:35)
[2022-05-03] MEDS: LORazepam 1 MG TABLET 2 MG PO ×2 (06:54→15:56)
[2022-05-03] MEDS: Lithium Carbonate 300 MG CAPSULE 600 MG PO ×2 (08:14→20:35)
[2022-05-03] MEDS: Thiamine HCL 100 MG TABLET PO (08:14)
[2022-05-03] MEDS: FLUoxetine HCl 20 MG CAPSULE 40 MG PO (08:14)
[2022-05-03] MEDS: Multivitamin TABLET 1 TAB PO (08:14)
[2022-05-03] MEDS: Gabapentin 300 MG CAPSULE PO ×3 (08:15→20:34)
[2022-05-03] MEDS: Folic Acid 1 MG TABLET PO (08:15)
[2022-05-03] MEDS: LORazepam 1 MG TABLET PO ×3 (08:15→20:35)
[2022-05-03 08:24] VITALS: BP 148/80; PULSE 72; RESP 18; TEMP 36.6; O2SAT 96
[2022-05-03] MEDS: HaloperidoL 5 MG TABLET PO (08:55)
[2022-05-03] MEDS: Nicotine Polacrilex 2 MG GUM BUCCAL ×4 (08:55→18:52)
[2022-05-03] MEDS: OLANZapine ODT 10 MG TAB.RAPDIS TRANSLINGU ×2 (10:34→20:34)
[2022-05-03] MEDS: Divalproex Sodium 250 MG TABLET.DR PO (10:34)
[2022-05-03 16:00] VITALS: BP 127/85; PULSE 71; TEMP 36.2; O2SAT 98
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
[2022-05-03] MEDS: lamoTRIgine 100 MG TABLET 200 MG PO (20:35)
[2022-05-03] MEDS: Nicotine Polacrilex 2 MG GUM 4 MG BUCCAL (22:05)
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
[2022-05-03] MEDS: Prazosin HCL 1 MG CAPSULE PO (23:01)
[2022-05-03 23:05] VITALS: BP 122/88; PULSE 75
[2022-05-04] MEDS: Milk of Magnesia 30 ML ORAL.SUSP PO (06:06)
[2022-05-04] MEDS: Nicotine Polacrilex 2 MG GUM 4 MG BUCCAL ×3 (06:39→17:17)
[2022-05-04] MEDS: LORazepam 1 MG TABLET 2 MG PO (06:40)
[2022-05-04 08:29] VITALS: BP 133/83; PULSE 69; RESP 18; TEMP 36.1; O2SAT 99
[2022-05-04] MEDS: Gabapentin 300 MG CAPSULE PO ×3 (08:32→20:31)
[2022-05-04] MEDS: Multivitamin TABLET 1 TAB PO (08:32)
[2022-05-04] MEDS: OLANZapine ODT 10 MG TAB.RAPDIS TRANSLINGU ×2 (08:32→20:31)
[2022-05-04] MEDS: Folic Acid 1 MG TABLET PO (08:32)
[2022-05-04] MEDS: Lithium Carbonate 300 MG CAPSULE 600 MG PO ×2 (08:32→20:31)
[2022-05-04] MEDS: Thiamine HCL 100 MG TABLET PO (08:32)
[2022-05-04] MEDS: FLUoxetine HCl 20 MG CAPSULE 40 MG PO (08:32)
[2022-05-04] MEDS: LORazepam 1 MG TABLET PO ×4 (08:32→22:36)
[2022-05-04] MEDS: Nicotine 21 MG PATCH.TD24 TRANSDERMA (08:35)
--- NOTE | 2022-05-04 09:00 | ECG_ITS ---
Test Reason : qtc check Blood Pressure : / mmHG Vent. Rate : 063 BPM Atrial Rate : 063 BPM P-R Int : 124 ms QRS Dur : 098 ms QT Int : 404 ms P-R-T Axes : 036 083 056 degrees QTc Int : 413 ms Normal sinus rhythm Normal ECG When compared with ECG of 22-OCT-2019 20:27, No significant change was found Referred By: Criss Kwan Electronically Signed By:YOKASTA TINOCO
[2022-05-04] MEDS: Acetaminophen 325 MG TABLET 650 MG PO (12:17)
[2022-05-04] MEDS: HaloperidoL 5 MG TABLET PO ×2 (14:01→18:17)
[2022-05-04] MEDS: hydrOXYzine HCL 25 MG TABLET PO (14:01)
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
[2022-05-04 20:20] VITALS: BP 138/80; PULSE 63; TEMP 36.3; O2SAT 98
[2022-05-04] MEDS: Prazosin HCL 1 MG CAPSULE PO (20:31)
[2022-05-04] MEDS: lamoTRIgine 100 MG TABLET 200 MG PO (20:31)
[2022-05-05 08:53] VITALS: BP 123/93; PULSE 88; RESP 18; TEMP 36.3; O2SAT 96
[2022-05-05] MEDS: Nicotine 21 MG PATCH.TD24 TRANSDERMA (08:54)
[2022-05-05] MEDS: FLUoxetine HCl 20 MG CAPSULE 40 MG PO (08:56)
[2022-05-05] MEDS: Lithium Carbonate 300 MG CAPSULE 600 MG PO ×2 (08:56→21:42)
[2022-05-05] MEDS: LORazepam 1 MG TABLET PO ×4 (08:56→20:55)
[2022-05-05] MEDS: Thiamine HCL 100 MG TABLET PO (08:56)
[2022-05-05] MEDS: Gabapentin 300 MG CAPSULE PO ×3 (08:56→21:42)
[2022-05-05] MEDS: OLANZapine ODT 10 MG TAB.RAPDIS TRANSLINGU ×2 (08:56→20:55)
[2022-05-05] MEDS: Folic Acid 1 MG TABLET PO (08:56)
[2022-05-05] MEDS: Multivitamin TABLET 1 TAB PO (08:56)
[2022-05-05] MEDS: Nicotine Polacrilex 2 MG GUM 4 MG BUCCAL (09:44)
[2022-05-05] MEDS: Acetaminophen 325 MG TABLET 650 MG PO (09:44)
[2022-05-05] MEDS: LORazepam 1 MG TABLET 2 MG PO (09:44)
[2022-05-05 11:45] VITALS: BP 128/85; PULSE 80; RESP 18
[2022-05-05] MEDS: Ibuprofen 800 MG TABLET PO (12:30)
[2022-05-05] MEDS: Lidocaine 4 % Patch ADH..PATCH 1 PATCH TRANSDERMA (14:34)
[2022-05-05 18:00] VITALS: BP 134/83; PULSE 72; TEMP 36.5; O2SAT 98
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
[2022-05-05] MEDS: Prazosin HCL 1 MG CAPSULE PO (21:42)
[2022-05-05] MEDS: lamoTRIgine 100 MG TABLET 200 MG PO (21:46)
[2022-05-06] MEDS: FLUoxetine HCl 20 MG CAPSULE 40 MG PO (08:59)
[2022-05-06] MEDS: OLANZapine ODT 10 MG TAB.RAPDIS TRANSLINGU ×2 (08:59→21:11)
[2022-05-06] MEDS: Thiamine HCL 100 MG TABLET PO (08:59)
[2022-05-06] MEDS: Folic Acid 1 MG TABLET PO (08:59)
[2022-05-06] MEDS: Lithium Carbonate 300 MG CAPSULE 600 MG PO ×2 (09:00→21:11)
[2022-05-06] MEDS: Gabapentin 300 MG CAPSULE PO ×3 (09:00→21:10)
[2022-05-06] MEDS: Multivitamin TABLET 1 TAB PO (09:00)
[2022-05-06] MEDS: LORazepam 1 MG TABLET PO (09:00)
[2022-05-06] MEDS: Nicotine 21 MG PATCH.TD24 TRANSDERMA (09:01)
[2022-05-06] MEDS: Nicotine Polacrilex 2 MG GUM 4 MG BUCCAL ×2 (09:03→16:15)
[2022-05-06 09:07] VITALS: BP 145/92; PULSE 94; RESP 18; TEMP 36.6; O2SAT 97
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
[2022-05-06] MEDS: hydrOXYzine HCL 25 MG TABLET PO (13:24)
[2022-05-06] MEDS: Acetaminophen 325 MG TABLET 650 MG PO (16:18)
[2022-05-06] MEDS: HaloperidoL 5 MG TABLET PO (16:19)
[2022-05-06 18:00] VITALS: BP 124/87; PULSE 78; TEMP 36.3; O2SAT 99
[2022-05-06] MEDS: lamoTRIgine 100 MG TABLET 200 MG PO (21:10)
[2022-05-06] MEDS: Prazosin HCL 1 MG CAPSULE PO (21:11)
[2022-05-07] MEDS: LORazepam 1 MG TABLET PO ×3 (02:05→20:20)
[2022-05-07] MEDS: hydrOXYzine HCL 25 MG TABLET PO ×2 (06:04→16:46)
--- NOTE | 2022-05-07 06:05 | PC.NURSE ---
0550: Pt awoke after experiencing a nightmare. Uncontrolled sobbing for approximately 15 minutes. Medicated with Vistaril 25 mg with effect.
[2022-05-07 07:00] VITALS: BMI 22.9
[2022-05-07] MEDS: FLUoxetine HCl 20 MG CAPSULE 40 MG PO (08:25)
[2022-05-07] MEDS: Lithium Carbonate 300 MG CAPSULE 600 MG PO ×2 (08:25→20:20)
[2022-05-07] MEDS: Multivitamin TABLET 1 TAB PO (08:25)
[2022-05-07] MEDS: Gabapentin 300 MG CAPSULE PO ×3 (08:25→20:20)
[2022-05-07] MEDS: OLANZapine ODT 10 MG TAB.RAPDIS TRANSLINGU ×2 (08:25→20:20)
[2022-05-07] MEDS: Folic Acid 1 MG TABLET PO (08:26)
[2022-05-07] MEDS: Thiamine HCL 100 MG TABLET PO (08:26)
[2022-05-07] MEDS: Nicotine 21 MG PATCH.TD24 TRANSDERMA (08:26)
[2022-05-07] MEDS: Nicotine Polacrilex 2 MG GUM 4 MG BUCCAL ×3 (09:11→20:29)
[2022-05-07] MEDS: HaloperidoL 5 MG TABLET PO ×2 (09:11→23:50)
[2022-05-07 10:02] VITALS: BP 156/98; PULSE 87; RESP 18; TEMP 36.4; O2SAT 98
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
[2022-05-07] MEDS: Propranolol HCL 20 MG TABLET PO ×2 (16:46→20:20)
[2022-05-07 18:00] VITALS: BP 149/101; PULSE 70; TEMP 36.8; O2SAT 98
[2022-05-07] MEDS: lamoTRIgine 100 MG TABLET 200 MG PO (20:20)
[2022-05-07] MEDS: Prazosin HCL 1 MG CAPSULE PO (20:20)
[2022-05-08] MEDS: Magnesium Hydrox/Alum Hydrox 30 ML ORAL.SUSP PO (00:13)
[2022-05-08] MEDS: diphenhydrAMINE HCL 25 MG CAPSULE 50 MG PO (01:50)
[2022-05-08] MEDS: Ibuprofen 800 MG TABLET PO (01:50)
[2022-05-08] MEDS: hydrOXYzine HCL 25 MG TABLET PO (05:56)
[2022-05-08] MEDS: Gabapentin 300 MG CAPSULE PO (08:47)
[2022-05-08] MEDS: Folic Acid 1 MG TABLET PO (08:47)
[2022-05-08] MEDS: LORazepam 1 MG TABLET PO (08:47)
[2022-05-08] MEDS: Lithium Carbonate 300 MG CAPSULE 600 MG PO (08:47)
[2022-05-08] MEDS: OLANZapine ODT 10 MG TAB.RAPDIS TRANSLINGU (08:47)
[2022-05-08] MEDS: Thiamine HCL 100 MG TABLET PO (08:47)
[2022-05-08] MEDS: Multivitamin TABLET 1 TAB PO (08:47)
[2022-05-08] MEDS: Propranolol HCL 20 MG TABLET PO (08:47)
[2022-05-08] MEDS: FLUoxetine HCl 20 MG CAPSULE 40 MG PO (08:47)
[2022-05-08] MEDS: Nicotine 21 MG PATCH.TD24 TRANSDERMA (08:48)
[2022-05-08 08:51] VITALS: BP 135/89; PULSE 59; RESP 18; TEMP 36.3; O2SAT 97
[2022-05-08 10:02] LABS: Alanine Aminotransferase 35 U/L (0-40); Albumin Level 4.4 g/dL (3.5-5.0); Alkaline Phosphatase 64 U/L (39-117); Anion Gap 12 (12-20); Aspartate Amino Transferase 21 U/L (5-37); Bilirubin Total 0.4 mg/dL (0.0-1.0); Blood Urea Nitrogen 18 mg/dL (9-16); Calcium 9.8 mg/dL (8.4-10.2); Carbon Dioxide 28 mmol/L (22-29); Chloride 104 mmol/L (96-108); Creatinine Clr Calc Pharmacy 81.2; Estimated Glomerular Filt Rate > 60; Glucose Random 98 mg/dL (60-115); Potassium 4.7 mmol/L (3.3-5.1); Sodium 139 mmol/L (135-145); Total Protein 6.5 g/dL (6.5-8.0)
[2022-05-08 10:06] LABS: TSH reflex Free T4 2.75 uIU/mL (0.32-4.0)
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
== END 2022-05-08 11:35 | disposition home or self-care (01) | DRG 753 ==
LOC: HO.ED 05-01 00:40 → HO.PM5 05-01 16:20
PROVIDERS: Nurse Practitioner Family; Social Worker; Admitting Provider Clinical Nurse Specialist Psychiatric/Mental Health, Adult; Emergency Provider Emergency Medicine; Visit Provider Clinical Nurse Specialist Psychiatric/Mental Health, Adult
DX: F31.9 Bipolar disorder, unspecified (principal); R45.851 Suicidal ideations; F17.210 Nicotine dependence, cigarettes, uncomplicated; F43.10 Post-traumatic stress disorder, unspecified; M54.9 Dorsalgia, unspecified; G89.29 Other chronic pain; Y90.8 Blood alcohol level of 240 mg/100 ml or more; Z20.822 Contact with and (suspected) exposure to COVID-19; Z59.02 Unsheltered homelessness; Z71.6 Tobacco abuse counseling; Z87.820 Personal history of traumatic brain injury; Z91.410 Personal history of adult physical and sexual abuse; Z79.899 Other long term (current) drug therapy
CPT/HCPCS: 36415; 80048; 80053; 80061; 80178; 80307; 82077; 82607; 82746; 83036; 83735; 84439; 84443; 85027; 87635; 93005; 99285; S9485

== ENCOUNTER 2024-04-08 05:48 | Inpatient (IN) | payer MEDICAID, OTHER, SELFPAY ==
--- NOTE | ~2024-04-08 | XR_ITS ---
EXAMINATION: XR CHEST CLINICAL INFORMATION: worsening cough/SOB COMPARISON: None available. TECHNIQUE: Frontal view of the chest was obtained. FINDINGS: No consolidation, pleural effusion or pneumothorax. Cardiomediastinal silhouette size is normal. Osseous structures are intact. XR/XR chest 1V IMPRESSION: No acute airspace disease. Electronically signed by: Xavier Fuchs MD 04/12/2024 11:12 AM [facility]
--- NOTE | ~2024-04-08 | XR_ITS ---
EXAMINATION: XR CHEST CLINICAL INFORMATION: sudden onset productive cough COMPARISON: None available. TECHNIQUE: Frontal view of the chest was obtained. FINDINGS: No consolidation, pleural effusion or pneumothorax. Cardiomediastinal silhouette size is normal. Osseous structures are intact. XR/XR chest 1V IMPRESSION: Normal x-ray. Electronically signed by: Xavier Fuchs MD 04/11/2024 12:03 PM [facility] [place]
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
[2024-04-08 05:50] VITALS: BP 144/86; PULSE 82; O2SAT 98
[2024-04-08 05:58] VITALS: BP 157/90; PULSE 85; RESP 20; TEMP 36.8; O2SAT 95; BMI 22.8
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
[2024-04-08 08:33] LABS: MANUAL DIFF FLAG NO
[2024-04-08 08:35] LABS: Appearance Urine Clear; Color Urine Yellow; Glucose Urine UA Negative (Negative); Leukocyte Esterase Urine Negative (Negative); Nitrite Urine Negative (Negative); PH 5.5 (5.0-9.0); Specific Gravity - Urine <= 1.005 (1.005-1.025); Urine Blood Negative (Negative); Urine Ketones Negative (Negative); Urine Protein Negative (Neg-Trace)
[2024-04-08 08:40] LABS: Basophils Percent Auto 0.5 % (0-2); Eosinophils Absolute Auto 0.2 X10*3/uL (0.0-0.4); Hematocrit 45.3 % (42.0-52.0); Hemoglobin 16.3 g/dl (14.0-18.0); Imm Gran Abs Auto 0.03 X10*3/uL (0.00-0.03); Imm Gran Pct Auto 0.4 % (0.0-0.4); Lymphocytes Absolute Auto 2.3 X10*3/uL (1.2-4.9); Lymphocytes Percent Auto 30.1 % (20-40); Mean Corpuscular Hemoglobin 32.1 pg (27.0-33.0); Mean Corpuscular Volume 89.3 fL (80.0-98.0); Mean Platelet Volume 10.6 fL (9.4-12.4); Monocytes Absolute Auto 0.6 X10*3/uL (0.1-1.2); Monocytes Percent Auto 8.1 % (2-11); Neutrophils Absolute Auto 4.4 x10*3/uL (2.0-8.3); Neutrophils Percent Auto 58.9 % (45-73); Platelet Count 265 X10*3/uL (160-400); Red Blood Count 5.07 X10*6/uL (4.60-5.80); Red Cell Distribution Width 13.2 % (11.0-16.0); White Blood Count 7.5 X10*3/uL (4.8-10.8)
--- NOTE | 2024-04-08 08:47 | ED_ITS ---
HPI - Alcohol General Chief Complaint: Psychiatric Symptoms Stated Complaint: SI/ ETOH Time Seen by Provider: 04/08/24 06:31 Source: patient and EMS Mode of arrival: EMS Limitations: no limitations History of Present Illness ED Provider: Nara Dickinson NP HPI narrative: Patient is a 43-year-old male presents emergency department via EMS for evaluation. Per nursing staff and EMS report which is obtained prior to my assumption of care nephew called endorsing that patient was intoxicated and making suicidal statements. On arrival to the ED he made suicidal statements to nursing staff that he would by fentanyl an overdose. At the time of my evaluation, he states ?I have always been suicidal this is going on for many years since I was [place] and nobody helped me?. He admits to alcohol consumption overnight but states he only had 1 natty daddy and nothing additional. He denies recreational drug usage. When asked, he denies homicidal ideations, denies hallucinations. He offers no physical complaints at this time. Related Data Previous Rx's ?Medication ?Instructions ?Recorded fluoxetine 40 mg capsule 40 mg PO DAILY #30 caps 05/08/22 folic acid 1 mg tablet 1 mg PO DAILY #30 tabs 05/08/22 gabapentin 300 mg capsule 300 mg PO TID #90 caps 05/08/22 lamotrigine 200 mg tablet 200 mg PO DAILY #30 tabs 05/08/22 lidocaine 4 % topical patch 1 patch transdermal DAILY #30 ea 05/08/22 (Lidocaine Pain Relief) lithium carbonate 600 mg capsule 600 mg PO BID #60 caps 05/08/22 multivitamin (Daily-Lino tablet) 1 tab PO DAILY #30 tabs 05/08/22 nicotine 21 mg/24 hr daily 21 mg transdermal DAILY #30 ea 05/08/22 transdermal patch olanzapine 10 mg disintegrating 10 mg translingual BID #60 tabs 05/08/22 tablet prazosin 1 mg capsule 1 mg PO BEDTIME #30 caps 05/08/22 propranolol 40 mg tablet 40 mg PO BID #60 tabs 05/08/22 thiamine mononitrate (vit B1) 100 100 mg PO DAILY #30 tabs 05/08/22 mg tablet trazodone 50 mg tablet 50 mg PO BEDTIME PRN Insomnia #30 05/08/22 tabs Allergies Allergy/AdvReac Type Severity Reaction Status Date / Time No Known Allergies Allergy Verified 04/08/24 06:02 [No Known Allergies*] Review of Systems 2 Review of Systems: Yes all other systems are reviewed and are negative [facility] Past Medical History Attestation statement: The following information was validated with the patient. Source: old records reviewed Medical History Alcohol use disorder PTSD (post-traumatic stress disorder) Alcohol abuse Bipolar disorder Chronic back pain Depression Social History Social History Household Members: None Housing: Apartment Do you presently have visiting nurse or other home services: No Alcohol intake: current Alcohol intake frequency: does not drink Alcohol type: hard liquor Patient Tobacco Use Status: Current everyday Tobacco user Tobacco use type: Cigarette Cigarette Packs Per Day: 2 Cigarettes Per Day: 40.0 Second Hand Smoke Exposure: Yes Substance Use Type: Marijuana Advance Directives: No Advance Directives Information Provided: No service: No Sexual orientation: Straight/Heterosexual Physical Exam ED Vital Signs: Vital Signs - 24 hr 04/08/24 05:58 04/08/24 11:25 04/08/24 15:16 Temperature 98.2 F 98.2 F 98.3 F Pulse Rate 85 95 94 Respiratory Rate 20 20 18 Blood Pressure 157/90 H 134/86 131/75 Pulse Oximetry 95 97 95 Oxygen Delivery Method Room Air Room Air Room Air BMI result Body Mass Index 22.8 Appearance: Alert.?Oriented to person and place. No acute distress.?Normal affect. Eyes: Pupils equal, round and reactive to light.? ENT: Pharynx normal.?? Neck: Normal inspection.? Neck supple.?? CVS: Heart sounds normal. Normal heart rate and rhythm.? Pulses normal.?? Respiratory: No respiratory distress.? Lung sounds clear to auscultation bilaterally?? Abdomen: Soft and non-tender. Normoactive bowel sounds. Skin: Skin warm and dry.? Normal skin color.? Extremities: No lower extremity edema.? Neuro: Moves all extremities spontaneously. Sensation intact bilaterally. CN II- XII intact. No focal neuro deficits. Ambulates with normal steady gait. Course Reevaluation(s) Reevaluation #1: clinically sober, continues to endorse SI, is having increasing depression, does not feel safe for discharge home. Awaiting care team evaluation for safe disposition planning. Time: 15:46 Medical Decision Making Medical Decision Making [facility] Narrative: Patient is a 43-year-old male with past medical history of alcohol use disorder, bipolar disorder, depression who presents emergency department acutely intoxicated with endorsing some suicidal ideations and reporting to nursing staff as specific plan although he does not speak directly to me in regards to this. He is agreeable to remaining in the emergency department until he sharri up and we will re-evaluate, given his SI statements he likely will benefit from care team evaluation. Obtaining serum labs for medical clearance. He offers no physical complaints in his physical examination is benign. Differential Diagnosis Differential Diagnoses: The differential diagnosis associated with the presentation includes (See narrative above and below for further detail) Admission/Observation Consideration of admission/observation: Escalation of care including admission/observation considered Patient is being observed in the Emergency Department for encephalopathy and statements of suicidal ideation. Observation time was started at 07:30 on 04/08/2024.?The patient is currently stable and non-toxic appearing. Observation is being initiated in the Emergency Department to allow time to help differentiate if the patient?s encephalopathy and delirium is due to alcohol intoxication and polysubstance abuse versus stroke, transient ischemic attack, major depression, overdose of medication, arrhythmia, seizure, or closed head injury/concussion. The patient will receive frequent assessments from the provider as well as the nursing staff. The patient will be monitored for the need for diagnostic imaging such as a CT head, MRI brain, chest x-ray, and serial EKGs to evaluate for prolonged QTc intervals. The patient will also be monitored for the need of PRN agitation medications such as Haldol, Ativan, and Benadryl. Consult Healthcare Provider Management of the patient was discussed with: Behavioral Health Provider (CARE team) Lab Data [facility] Lab Attestation statement: I reviewed the patient's lab results. 04/08/24 08:25 04/08/24 08:25 Labs: Lab Results 04/08/24 04/08/24 Range/Units 08:25 08:28 WBC 7.5 (4.8-10.8) X10*3/uL RBC 5.07 (4.60-5.80) X10*6/uL Hgb 16.3 (14.0-18.0) g/dl Hct 45.3 (42.0-52.0) % MCV 89.3 (80.0-98.0) fL MCH 32.1 (27.0-33.0) pg MCHC 36.0 (31.0-36.0) g/dl RDW 13.2 (11.0-16.0) % Plt Count 265 (160-400) X10*3/uL MPV 10.6 (9.4-12.4) fL Immature Gran % (Auto) 0.4 (0.0-0.4) % Neut % (Auto) 58.9 (45-73) % Lymph % (Auto) 30.1 (20-40) % Boundary % (Auto) 8.1 (2-11) % Eos % (Auto) 2.0 (0-4) % Baso % (Auto) 0.5 (0-2) % Lymph # (Auto) 2.3 (1.2-4.9) X10*3/uL Boundary # (Auto) 0.6 (0.1-1.2) X10*3/uL Eos # (Auto) 0.2 (0.0-0.4) X10*3/uL Baso # (Auto) 0.0 (0.0-0.2) X10*3/uL Abs Immat Gran (auto) 0.03 (0.00-0.03) X10*3/uL Absolute Neuts (auto) 4.4 (2.0-8.3) x10*3/uL Absolute Nucleated RBC 0.000 (0.0-0.012) X10*3/uL Nucleated RBC % (auto) 0.0 (0.0-0.2) /100WBC PT 10.1 L (10.9-12.4) SEC INR 0.9 (0.9-1.1) Sodium 142 (135-145) mmol/L Potassium 3.8 (3.3-5.1) mmol/L Chloride 110 H (96-108) mmol/L Carbon Dioxide 20 L (22-29) mmol/L Anion Gap 16 (12-20) BUN 11 (9-16) mg/dL Creatinine 0.78 (0.5-1.4) mg/dL Estim Creat Clear Calc 115.0 Estimated GFR > 60 Random Glucose 120 H (60-115) mg/dL Calcium 9.1 D (8.4-10.2) mg/dL Magnesium 2.4 (1.6-2.6) mg/dL Total Bilirubin 0.3 (0.0-1.0) mg/dL AST 28 (5-37) U/L ALT 68 H (0-40) U/L Alkaline Phosphatase 62 (39-117) U/L Total Protein 8.0 (6.5-8.0) g/dL Albumin 4.8 (3.5-5.0) g/dL Lipase 62 (8-78) U/L Urine Color Yellow Urine Appearance Clear Urine pH 5.5 (5.0-9.0) Ur Specific Combs <= 1.005 (1.005-1.025) Urine Protein Negative (Neg-Trace) mg/dL Urine Glucose (UA) Negative (Negative) mg/dL Urine Ketones Negative (Negative) mg/dL Urine Blood Negative (Negative) Urine Nitrite Negative (Negative) Ur Leukocyte Esterase Negative (Negative) Urine Opiates Screen Not Detected (Not Detect) Ur Buprenorphine Scrn Not Detected (Not Detect) ng/mL Ur Oxycodone Screen Not Detected (Not Detect) ng/mL Urine Methadone Screen Not Detected (Not Detect) ng/mL Urine Fentanyl Screen Not Detected (Not Detect) Ur Barbiturates Screen Not Detected (Not Detect) Ur Phencyclidine Scrn Not Detected (Not Detect) Ur Amphetamines Screen Not Detected (Not Detect) U Benzodiazepines Scrn Not Detected (Not Detect) Urine Cocaine Screen Not Detected (Not Detect) U Marijuana (THC) Screen POSITIVE H (Not Detect) Ethyl Alcohol 249 mg/dL Independent Historian Clinical information obtained from an independent historian. History obtained from or confirmed by: EMS External Record Review External record reviewed: Outpatient record Discharge Plan Discharge Clinical Impression: Suicidal ideation, Alcohol intoxication Patient Disposition: Still a Patient Prescriptions: No Action nicotine 21 mg/24 hr Patch 24 Hour 21 mg transdermal DAILY Qty: 30 0RF prazosin 1 mg Capsule 1 mg PO BEDTIME Qty: 30 0RF Protocol: Hold for SBP< HOLD for SBP < : 90 propranolol 40 mg tablet 40 mg PO BID Qty: 60 0RF fluoxetine 40 mg capsule 40 mg PO DAILY Qty: 30 0RF lamotrigine 200 mg tablet 200 mg PO DAILY Qty: 30 0RF lithium carbonate 600 mg capsule 600 mg PO BID Qty: 60 0RF olanzapine 10 mg Tablet,Disintegrating 10 mg translingual BID Qty: 60 0RF gabapentin 300 mg Capsule 300 mg PO TID Qty: 90 0RF lidocaine [Lidocaine Pain Relief] 4 % Adhesive Patch,Medicated 1 patch transdermal DAILY Qty: 30 0RF Protocol: Apply to: Apply to: lower back trazodone 50 mg Tablet 50 mg PO BEDTIME PRN (Reason: Insomnia) Qty: 30 0RF folic acid 1 mg Tablet 1 mg PO DAILY Qty: 30 0RF thiamine mononitrate (vit B1) 100 mg Tablet 100 mg PO DAILY Qty: 30 0RF multivitamin [Daily-Lino] Tablet 1 tab PO DAILY Qty: 30 0RF Interventions: [place]-Suicide Risk Severity Scale Last Done: 04/08/24 06:02 Print Language: Wolof
[2024-04-08 08:51] LABS: INTERNATIONAL NORM RATIO 0.9 (0.9-1.1); Prothrombin Time 10.1 SEC (10.9-12.4)
[2024-04-08 08:55] LABS: Amphetamine Screen Urine Not Detected (Not Detect); Barbiturates, Urine Not Detected (Not Detect); Benzodiazepines Screen Urine Not Detected (Not Detect); Buprenorphine Scr Not Detected (Not Detect); Cannabinoid Screen Urine POSITIVE (Not Detect); Cocaine Screen Urine Not Detected (Not Detect); Fentanyl, urine Not Detected (Not Detect); Methadone Screen, Urine Not Detected (Not Detect); Opiate Screen Urine Not Detected (Not Detect); Oxycodone Screen Urine Not Detected (Not Detect); Phencyclidine Screen Urine Not Detected (Not Detect)
[2024-04-08 09:04] LABS: Alanine Aminotransferase 68 U/L (0-40); Albumin Level 4.8 g/dL (3.5-5.0); Alkaline Phosphatase 62 U/L (39-117); Anion Gap 16 (12-20); Aspartate Amino Transferase 28 U/L (5-37); Bilirubin Total 0.3 mg/dL (0.0-1.0); Blood Urea Nitrogen 11 mg/dL (9-16); Calcium 9.1 mg/dL (8.4-10.2); Carbon Dioxide 20 mmol/L (22-29); Chloride 110 mmol/L (96-108); Estimated Glomerular Filt Rate > 60; Ethanol 249 mg/dL; Glucose Random 120 mg/dL (60-115); Lipase 62 U/L (8-78); Magnesium 2.4 mg/dL (1.6-2.6); Potassium 3.8 mmol/L (3.3-5.1); Sodium 142 mmol/L (135-145)
[2024-04-08 11:25] VITALS: BP 134/86; PULSE 95; RESP 20; TEMP 36.8; O2SAT 97
--- NOTE | 2024-04-08 13:32 | PC.NURSE ---
continues to rest quietly on stretcher with patient observer at bedside for patient safety. endorses headache which states is chronic d/t previous head injury.
[2024-04-08 15:16] VITALS: BP 131/75; PULSE 94; RESP 18; TEMP 36.8; O2SAT 95
--- NOTE | 2024-04-08 19:55 | MHC.CARE ---
CARE team to follow up with pt in the AM for tx recommendations. Attempted to meet with pt multiple times but he was too disorganized to effectively engage in assessment
--- NOTE | 2024-04-08 21:20 | PC.NURSE ---
at this time, pt CIWA=15. Ok [facility] aware, medication orders placed per apr. pt reporting nausea, vomiting, headache, anxiety and muscle tremors. pt reports he has never been in alcohol withdraw in the past.
[2024-04-08] MEDS: Ondansetron ODT 4 MG TAB.RAPDIS TRANSLINGU (21:50)
[2024-04-08] MEDS: Acetaminophen 325 MG TABLET 975 MG PO (21:51)
[2024-04-08] MEDS: LORazepam 1 MG TABLET 2 MG PO (21:51)
--- NOTE | 2024-04-09 01:43 | PC.NURSE ---
pt allowed to sleep, respirations even and unlabored.
[2024-04-09 03:10] VITALS: BP 123/83; PULSE 70; RESP 12; TEMP 36.6; O2SAT 95
--- NOTE | 2024-04-09 10:51 | PC.NURSE ---
Pt resting quietly on stretcher; CIWA currently 0; awaiting care team for evaluation; pt denies SI/HI at this time; sitter in place for pt safety
--- NOTE | 2024-04-09 11:20 | MHC.EDTECH ---
This tech was asked to obtain patient phone. No belongings list in system. This tech found patient belongings in [facility] port shelf 2. One bag total found. Supplied patient with phone to obtain telelphone numbers. Phone is back locked in [facility] port shelf 2.
[2024-04-09] MEDS: LORazepam 1 MG TABLET 2 MG PO ×2 (11:27→14:35)
[2024-04-09 11:29] VITALS: BP 138/86; PULSE 73; RESP 19; TEMP 37.2; O2SAT 99
--- NOTE | 2024-04-09 11:31 | PC.NURSE ---
Pt's CIWA 10; tremulous and anxious; pt reports increase in anxiety; medicated per orders; awaiting care team eval; sitter in place for pt safety
--- NOTE | 2024-04-09 12:09 | MHC.CARE ---
Pt was assessed on a follow up, will be an adult inpatient bedsearch
--- NOTE | 2024-04-09 16:38 | PC.NURSE ---
Patient had an episode of potential syncope, he reports that he woke up, was disoriented to place/situation, attempted to stand up but blacked out. He fell onto the bed, no headstrike. After about 5-10 seconds he woke up and continued to be disoriented. Patient reports that he is afraid and unsure of what is going on. Pt re-oriented by staff to location and situation. He is tearful. Now laying in bed, Tor made away via tiger text and charge preparation technician also made aware
[2024-04-09 16:39] VITALS: BP 116/66; PULSE 76; RESP 16; TEMP 37.2; O2SAT 97
--- NOTE | 2024-04-09 18:01 | PC.NURSE ---
Provider evaled patient at bedside, plan to keep patient in the pod for the time being. Patient remains unstable on feet with walker
--- NOTE | 2024-04-09 19:07 | PC.NURSE ---
pt is reporting increased anxiety and nicotine cravings
[2024-04-09] MEDS: Nicotine Polacrilex 2 MG GUM BUCCAL (19:31)
[2024-04-09] MEDS: LORazepam 1 MG TABLET PO (19:32)
[2024-04-09 21:19] VITALS: RESP 16
--- NOTE | 2024-04-09 22:44 | PC.NURSE ---
Assumed care of this patient at this time. patient is currently sleeping and in no distress. RR even and unlabored. Will continue to monitor through the night
[2024-04-10] MEDS: LORazepam 1 MG TABLET PO ×3 (00:09→17:57)
[2024-04-10] MEDS: Acetaminophen 325 MG TABLET 975 MG PO (00:09)
--- NOTE | 2024-04-10 00:11 | PC.NURSE ---
patient presents to nurse station complaining of headache and anxiety. Tylenol and ativan given. will continue to monitor
[2024-04-10 06:08] VITALS: BP 147/79; PULSE 67; RESP 22; TEMP 37.1; O2SAT 98
--- NOTE | 2024-04-10 07:39 | PHA.MEDREC ---
Pharmacy Consult ? Medication Reconciliation Pharmacy has completed the medication reconciliation. Reviewed med rec done by nursing.
--- NOTE | 2024-04-10 08:22 | ECG_ITS ---
Test Reason : check prolong qt Blood Pressure : */* mmHG Vent. Rate : 71 BPM Atrial Rate : 78 BPM P-R Int : 132 ms QRS Dur : 92 ms QT Int : 414 ms P-R-T Axes : 56 75 54 degrees QTcB Int : 449 ms Normal sinus rhythm with sinus arrhythmia Normal ECG When compared with ECG of 04-May-2022 09:27, Nonspecific T wave abnormality now evident in Lateral leads Referred By: Generic ED Physician Electronically Signed By: SAL MAURICIO MD
[2024-04-10] MEDS: Nicotine Polacrilex 2 MG GUM BUCCAL (10:54)
--- NOTE | 2024-04-10 11:02 | PC.NURSE ---
pt is reporting feeling anxious/dry heaving and having a headache pt medicated per MAR pt is also reporting that he has not had any of his regular scheduled medications since he has been in the hospital, this rn called the pharmacy ti help out doing the med/rec
[2024-04-10] MEDS: Acetaminophen 325 MG TABLET 650 MG PO ×2 (11:06→21:11)
[2024-04-10 12:42] VITALS: BP 135/85; PULSE 97; RESP 20; TEMP 36.9; O2SAT 96
--- NOTE | 2024-04-10 12:45 | PC.NURSE ---
pt reports not feeling all that better after the tylenol, headache is a 7/10 but pt is not dry heaving at this time
[2024-04-10] MEDS: Nicotine Polacrilex 2 MG GUM 4 MG BUCCAL ×3 (15:56→21:12)
--- NOTE | 2024-04-10 16:02 | PC.NURSE ---
report given to Ani stover
[2024-04-10 16:15] VITALS: BP 125/87; PULSE 96; TEMP 36.5; O2SAT 98
[2024-04-10 17:36] VITALS: BMI 26.7
[2024-04-10] MEDS: OLANZapine 5 MG TABLET PO ×2 (17:46→23:48)
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
[2024-04-10 19:49] VITALS: BP 130/91; PULSE 92; RESP 16; TEMP 36.9; O2SAT 97
[2024-04-10] MEDS: Cyclobenzaprine HCl 5 MG TABLET PO (21:10)
[2024-04-10] MEDS: LORazepam 1 MG TABLET 2 MG PO ×2 (21:11→23:48)
[2024-04-11 02:05] VITALS: BP 119/76; PULSE 76
[2024-04-11] MEDS: LORazepam 1 MG TABLET 2 MG PO ×3 (02:07→17:52)
[2024-04-11 08:40] VITALS: BP 114/63; PULSE 90; RESP 18; TEMP 37.1; O2SAT 98
[2024-04-11 08:41] LABS: Estimated Average Glucose 94 mg/dL; Hemoglobin A1C 129.4117 umol/L; Hemoglobin A1c % 4.9 % (<6.0); Total Hemoglobin (HGBA1C) 4245.4593 umol/L
[2024-04-11] MEDS: Thiamine HCL 100 MG TABLET PO (08:41)
[2024-04-11] MEDS: Folic Acid 1 MG TABLET PO (08:41)
[2024-04-11] MEDS: Nicotine Polacrilex 2 MG GUM 4 MG BUCCAL ×4 (08:44→17:52)
[2024-04-11 08:49] LABS: Cholesterol 231 mg/dL (<200); HDL Cholesterol 43 mg/dL (>40); LDL Cholesterol Calculated 159 mg/dL (<100); Triglycerides 147 mg/dL (<150)
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
[2024-04-11] MEDS: Acetaminophen 325 MG TABLET 650 MG PO ×2 (10:13→15:10)
[2024-04-11] MEDS: Lithium Carbonate ER 300 MG TABLET.ER 600 MG PO (11:17)
[2024-04-11] MEDS: lamoTRIgine 100 MG TABLET 200 MG PO (11:18)
[2024-04-11] MEDS: LORazepam 1 MG TABLET PO (12:56)
--- NOTE | 2024-04-11 14:05 | MHC.CLN ---
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
--- NOTE | 2024-04-11 14:05 | MHC.RECOVRN ---
AUDIT-C Brief Intervention Pt had positive screen for unhealthy alcohol use on admission, subsequently met with t/w to discuss alcohol use and recovery supports/options. This medical underwriter met with patient to discuss current alcohol use and concerns related to increased risk of alcohol related problems.? Pt reports he used to drink a lot in the past but since living in [place] and not having access to it he no longer drinks. Discussed how alcohol use has impacted health, including negative impact on mental health and relationships Withdrawal History:not discussed Treatment History: Never attended detox. Have attended [facility] Supports:?family Discussed risk reduction strategies including drinking below the recommended limit. Provided pt with written resources including information on inpatient and outpatient treatment, [facility], harm reduction, and recovery coaching. Pt plans to Focus on his mental health wellness and lean on family for support. Pt provided with t/w contact information if questions or concerns arise. Denies other questions or concerns at this time.
[2024-04-11] MEDS: OLANZapine 5 MG TABLET PO ×2 (14:25→21:39)
[2024-04-11] MEDS: Nicotine Polacrilex 2 MG GUM BUCCAL (14:26)
[2024-04-11] MEDS: Loperamide HCl 2 MG CAPSULE PO (16:03)
[2024-04-11 19:53] VITALS: BP 111/70; PULSE 93; RESP 16; TEMP 36.4; O2SAT 99
[2024-04-11 21:39] VITALS: BP 134/78
[2024-04-11] MEDS: Prazosin HCL 1 MG CAPSULE PO (21:39)
[2024-04-12 08:00] VITALS: BP 103/59; PULSE 81; RESP 18; TEMP 36.8; O2SAT 97
[2024-04-12] MEDS: lamoTRIgine 100 MG TABLET 200 MG PO (08:12)
[2024-04-12] MEDS: Folic Acid 1 MG TABLET PO (08:13)
[2024-04-12] MEDS: Thiamine HCL 100 MG TABLET PO (08:13)
[2024-04-12] MEDS: LORazepam 1 MG TABLET PO ×2 (08:30→12:08)
--- NOTE | 2024-04-12 10:12 | P.PNPSI_ITS ---
Subjective Subjective Date of Service: 04/12/24 Reason For Visit: Depressed Interim History: met with patient; discussed with team Patient reports mood is better; no SI. Patient says he slept well and appreciates lithium being moved to bedtime. Says he was drinking for about 2-3 days and denies any withdrawal Mental Status Exam Mental Status Exam Narrative: Pt is alert and oriented; behavior is cooperative, friendly and calm; patient is not in distress; dressed in casual attire with unkempt hair, scruffy but adequate hygiene; mood is described as okay and affect congruent; eye contact appropriate; Speech is normal rate, volume and prosody and not pressured; no psychomotor agitation/retardation present; thought process is organized and goal directed; Thought content is on tx; otherwise pertinent to relevant topics and without any delusional content, paranoid ideations or grandiosity; denies any SI/HI. There is no evidence of perceptual disturbance. Patients insight and judgment appear intact. Diagnostics Vital Signs (24Hr): Vital Signs - 24 hr 04/11/24 19:53 04/11/24 21:39 04/12/24 08:00 Temperature 97.6 F 98.2 F Pulse Rate 93 81 Respiratory Rate 16 18 Blood Pressure 111/70 134/78 103/59 L Pulse Oximetry 99 97 Oxygen Delivery Method Room Air Room Air BMI result Body Mass Index 26.7 Labs 04/12/24 11:08 04/08/24 08:25 Labs: Laboratory Results - last 48 hr 04/11/24 07:54 Estimat Average Glucose 94 Hemoglobin A1c % 4.9 Triglycerides 147 Cholesterol 231 H LDL Cholesterol, Calc 159 H HDL Cholesterol 43 TSH 1.60 Imaging Radiology Impressions: ITS Impressions Chest X-Ray 04/11/24 11:55 IMPRESSION: Normal x-ray. Electronically signed by: Xavier Fuchs MD 04/11/2024 12:03 PM [facility] Medications Medications Current Medications Acetaminophen (Acetaminophen 325 Mg Tablet) 650 mg PO Q6H PRN PRN Reason: Headache/Pain, Scale 1-10 Last Admin: 04/11/24 15:10 Dose: 650 mg Al Hydroxide/Mg Hydroxide (Magnesium Hydrox/Alum Hydrox 30 Ml Oral.Susp) 30 ml PO Q6H PRN PRN Reason: Heartburn/Nausea Cyclobenzaprine HCl (Cyclobenzaprine Hcl 5 Mg Tablet) 5 mg PO BEDTIME PRN PRN Reason: muscle cramps Last Admin: 04/10/24 21:10 Dose: 5 mg Folic Acid (Folic Acid 1 Mg Tablet) 1 mg PO DAILY ALEX Last Admin: 04/12/24 08:13 Dose: 1 mg Hydroxyzine HCl (Hydroxyzine Hcl 25 Mg Tablet) 25 mg PO Q6H PRN PRN Reason: mild anxiety Lamotrigine (Lamotrigine 100 Mg Tablet) 200 mg PO DAILY ALEX Last Admin: 04/12/24 08:12 Dose: 200 mg [place] Carbonate ([place] Carbonate Er 300 Mg Tablet.Er) 1,200 mg PO BEDTIME ALEX Loperamide HCl (Loperamide Hcl 2 Mg Capsule) 2 mg PO Q6H PRN PRN Reason: Loose Stool Last Admin: 04/11/24 16:03 Dose: 2 mg Lorazepam (Lorazepam 1 Mg Tablet) 1 mg PO Q2H PRN PRN Reason: CIWA 6-10 Last Admin: 04/12/24 08:30 Dose: 1 mg Lorazepam (Lorazepam 1 Mg Tablet) 2 mg PO Q2H PRN PRN Reason: CIWA 11 and above Last Admin: 04/11/24 17:52 Dose: 2 mg Magnesium Hydroxide (Milk Of Magnesia 30 Ml Oral.Susp) 30 ml PO DAILY PRN PRN Reason: Constipation Meclizine HCl (Meclizine Hcl 12.5 Mg Tablet) 12.5 mg PO DAILY PRN PRN Reason: Vertigo Nicotine (Nicotine 21 Mg Patch.Td24) 21 mg TRANSDERMA DAILY PRN PRN Reason: smoking cessation Nicotine Polacrilex (Nicotine Polacrilex 2 Mg Gum) 2 mg BUCCAL Q2H PRN PRN Reason: Nicotine Cravings Last Admin: 04/11/24 14:26 Dose: 2 mg Nicotine Polacrilex (Nicotine Polacrilex 2 Mg Gum) 4 mg BUCCAL Q2H PRN PRN Reason: Nicotine Cravings Last Admin: 04/11/24 17:52 Dose: 4 mg Olanzapine (Olanzapine 5 Mg Tablet) 5 mg PO TID PRN PRN Reason: agitation Last Admin: 04/11/24 21:39 Dose: 5 mg Prazosin HCl (Prazosin Hcl 1 Mg Capsule) 1 mg PO BEDTIME ALEX; Protocol Last Admin: 04/11/24 21:39 Dose: 1 mg Thiamine HCl (Thiamine Hcl 100 Mg Tablet) 100 mg PO DAILY ALEX Last Admin: 04/12/24 08:13 Dose: 100 mg Trazodone HCl (Trazodone Hcl 50 Mg Tablet) 50 mg PO BEDTIME MRX1 PRN PRN Reason: Insomnia Allergies Allergies Allergy/AdvReac Type Severity Reaction Status Date / Time No Known Allergies Allergy Verified 04/08/24 06:02 [No Known Allergies*] Assessment & Plan Assessment & Plan (1) Bipolar disorder: Status: Acute Code(s): F31.9 - Bipolar disorder, unspecified (2) PTSD (post-traumatic stress disorder): Status: Acute Code(s): F43.10 - Post-traumatic stress disorder, unspecified (3) Alcohol use disorder: Status: Acute Code(s): F10.90 - Alcohol use, unspecified, uncomplicated (4) TBI (traumatic brain injury): Status: Acute Code(s): S06.9XAA - Unspecified intracranial injury with loss of consciousness status unknown, initial encounter Plan HPI: Pt is a 43 yo male with hx of Bipolar dx, PtSD, TBI alcohol use disorder, who presents for depression and making SI statements in face of being off lithium and intoxication. Pt reports it's been a tough month and lists multiple psychosocial stressors including of a friend. About 2 weeks ago he ran out of [place] due to provider mix up (?) which has made it harder to cope w/ feelings. Pt reports he binge drinks only on weekends when not w/ daughter; this past weekend he was unable to see his beloved 10 yo daughter so started drinking and once intoxicated became agitated, slamming doors, yelling and making suicidal statements in front of his 17 yo step-son who called 911. At ED pt made suicidal statements as well. Now, pt says he must have blacked out, which is common, and does not remember saying any SI; he does not dispute it, but says he has not been had any actual SI at all and would never hurt himself, love of his daughters a strong protective factor. On going ptsd symptoms; denies other substance abuse except for cannabis; wants to get back on [place] Formulation/Clinical reasoning: Carries Bipolar dx and currently depressed from both psychosocial stressors and being off lithium. Will continue home meds and restart [place]. Sustained TBI last year and binge drinking both contributory -Regarding substance abuse treatment and risks discussed with patient who at this time patient declines MAT or help with outpt treatment options including programs; instead patient is choosing to work out sobriety on own -patient coughing and reports sudden onset of congestive cough; afebrile and WBC WNL however given recent intoxication, agitation and blackout will get chest x- ray to rule out possible aspiration pneumonia Hospital course: 3/5Patient reports mood is better; no SI. Patient says he slept well and appreciates lithium being moved to bedtime. Says he was drinking for about 2-3 days and denies any withdrawal Patient however complains of general malaise with worsen cough, SOB; RR 20 though afebrile Auscultation and com writer appreciated b/l Wheeze/rhonic on exhalation - Hospitalist consult -ordering 2nd CXR since worsening symptoms (yesterdays unremarkable) -CBC -influenza positive PLAN: CV q15min DC CIWA Continue home meds restart [place] ER -collateral Reports has been taking regularly: lamictal, Prozac, gabapentin, prazosin, +/2trazodone -no longer on Zyprexa (not sure if it ever helped) Patient educated on: diagnosis, medication risk/benefits and medical condition Informed Consent: understands Reason for continued inpatient stay Substantial Risk for: rapid decompensation Time Spent With Patient Time: Total time managing care of this patient today ____ minutes.
[2024-04-12] MEDS: Albuterol Sulfate 90 MCG 8 GM INHALER 2 PUFF INHALE (10:24)
[2024-04-12] MEDS: Nicotine Polacrilex 2 MG GUM 4 MG BUCCAL ×3 (10:28→18:28)
[2024-04-12 11:12] LABS: MANUAL DIFF FLAG NO
[2024-04-12 11:15] LABS: Basophils Percent Auto 0.5 % (0-2); Eosinophils Percent Auto 0.6 % (0-4); Hematocrit 44.7 % (42.0-52.0); Hemoglobin 16.1 g/dl (14.0-18.0); Imm Gran Abs Auto 0.02 X10*3/uL (0.00-0.03); Imm Gran Pct Auto 0.3 % (0.0-0.4); Lymphocytes Absolute Auto 1.4 X10*3/uL (1.2-4.9); Lymphocytes Percent Auto 22.8 % (20-40); Mean Corpuscular Hemoglobin 32.3 pg (27.0-33.0); Mean Corpuscular Volume 89.6 fL (80.0-98.0); Mean Platelet Volume 10.3 fL (9.4-12.4); Monocytes Absolute Auto 0.9 X10*3/uL (0.1-1.2); Monocytes Percent Auto 14.4 % (2-11); Neutrophils Absolute Auto 3.8 x10*3/uL (2.0-8.3); Neutrophils Percent Auto 61.4 % (45-73); Platelet Count 167 X10*3/uL (160-400); Red Blood Count 4.99 X10*6/uL (4.60-5.80); Red Cell Distribution Width 12.9 % (11.0-16.0); White Blood Count 6.2 X10*3/uL (4.8-10.8)
[2024-04-12 12:05] VITALS: BP 135/71; PULSE 92; RESP 20; TEMP 36.9; O2SAT 95
[2024-04-12] MEDS: Acetaminophen 325 MG TABLET 650 MG PO ×2 (12:07→20:58)
[2024-04-12 14:10] LABS: Influenza A PCR POSITIVE (Negative); Influenza B PCR NEGATIVE (Negative); Resp Syncy Virus RNA Qual PCR NEGATIVE (Negative); SARS COV2 PCR INHOUSE NEGATIVE (Negative)
[2024-04-12] MEDS: OLANZapine 5 MG TABLET PO (14:36)
[2024-04-12] MEDS: hydrOXYzine HCL 25 MG TABLET PO ×2 (14:36→20:59)
[2024-04-12] MEDS: Oseltamivir Phosphate 75 MG CAPSULE PO (18:49)
[2024-04-12 19:53] VITALS: BP 122/56; PULSE 84; RESP 16; TEMP 36.6; O2SAT 98
[2024-04-12] MEDS: Cyclobenzaprine HCl 5 MG TABLET PO (20:58)
[2024-04-12] MEDS: Prazosin HCL 1 MG CAPSULE PO (20:58)
[2024-04-12] MEDS: Lithium Carbonate ER 300 MG TABLET.ER 1200 MG PO (20:58)
[2024-04-12] MEDS: traZODone HCL 50 MG TABLET PO (21:00)
--- NOTE | 2024-04-12 22:22 | PM.EVENT ---
Event Note Date of Service: 04/12/24 Event Note: Pt is a 43-year-old male admitted to [facility] Psychiatric unit with hospitalist consult placed for sudden onset SOB, cough, and wheezing. Workup significant for pt testing positive for influenza type A. Vitals stable without significant tachycardia or fever. Pt not hypoxic, satting at 98% on RA. CXR negative for acute airspace disease. No leukocytosis. Will treat pt with Tamiflu 75 mg b.i.d. x5 days, as well as symptomatically with guaifenesin for cough and acetaminophen for fever. No indication of superimposed pneumonia. Pt should be kept in isolation and staff should employ droplet precautions when administering care. Time Spent With Patient Time: Total time managing care of this patient today ____ minutes.
[2024-04-13 08:00] VITALS: BP 121/63; PULSE 102; RESP 18; TEMP 37.2; O2SAT 97
[2024-04-13] MEDS: Acetaminophen 325 MG TABLET 650 MG PO ×2 (09:13→17:32)
[2024-04-13] MEDS: lamoTRIgine 100 MG TABLET 200 MG PO (09:13)
[2024-04-13] MEDS: Thiamine HCL 100 MG TABLET PO (09:14)
[2024-04-13] MEDS: guaiFENesin DM 200/20/10 ML 10 ML SYRUP PO (09:14)
[2024-04-13] MEDS: Folic Acid 1 MG TABLET PO (09:14)
[2024-04-13] MEDS: Oseltamivir Phosphate 75 MG CAPSULE PO ×2 (09:14→21:41)
--- NOTE | 2024-04-13 09:16 | HO.PSYCHPN ---
Subjective Subjective Date of Service: 04/13/24 Reason For Visit: Depressed Interim History: met with patient; discussed with team mood better, but feeling mailaise from influenza Mental Status Exam Mental Status Exam Narrative: Pt is alert and oriented; behavior is cooperative, friendly and calm; patient is not in distress; dressed in casual attire with unkempt hair, scruffy but adequate hygiene; mood is described as okay and affect congruent; eye contact appropriate; Speech is normal rate, volume and prosody and not pressured; no psychomotor agitation/retardation present; thought process is organized and goal directed; Thought content is on tx; otherwise pertinent to relevant topics and without any delusional content, paranoid ideations or grandiosity; denies any SI/HI. There is no evidence of perceptual disturbance. Patients insight and judgment fair Diagnostics Vital Signs (24Hr): Vital Signs - 24 hr 04/12/24 12:05 04/12/24 19:53 04/13/24 08:00 Temperature 98.5 F 97.8 F 98.9 F Pulse Rate 92 84 102 H Respiratory Rate 20 16 18 Blood Pressure 135/71 122/56 L 121/63 Pulse Oximetry 95 98 97 Oxygen Delivery Method Room Air Room Air Room Air BMI result Body Mass Index 26.7 Labs 04/12/24 11:08 04/08/24 08:25 Labs: Laboratory Results - last 48 hr 04/11/24 04/12/24 04/12/24 07:54 11:08 13:25 WBC 6.2 RBC 4.99 Hgb 16.1 Hct 44.7 MCV 89.6 MCH 32.3 MCHC 36.0 RDW 12.9 Plt Count 167 D MPV 10.3 Immature Gran % (Auto) 0.3 Neut % (Auto) 61.4 Lymph % (Auto) 22.8 [place] % (Auto) 14.4 H Eos % (Auto) 0.6 Baso % (Auto) 0.5 Lymph # (Auto) 1.4 [place] # (Auto) 0.9 Eos # (Auto) 0.0 Baso # (Auto) 0.0 Abs Immat Gran (auto) 0.02 Absolute Neuts (auto) 3.8 Absolute Nucleated RBC 0.000 Nucleated RBC % (auto) 0.0 TSH 1.60 Influenza Type A (PCR) POSITIVE A Influenza Type B (PCR) NEGATIVE RSV RNA Qual (PCR) NEGATIVE SARS-CoV-2 RNA (RT-PCR) NEGATIVE Imaging Radiology Impressions: ITS Impressions Chest X-Ray 04/11/24 11:55 IMPRESSION: Normal x-ray. Electronically signed by: Xavier Fuchs MD 04/11/2024 12:03 PM EST RP Chest X-Ray 04/12/24 10:44 IMPRESSION: No acute airspace disease. Electronically signed by: Xavier Fuchs MD 04/12/2024 11:12 AM EST RP Medications Medications Current Medications Acetaminophen (Acetaminophen 325 Mg Tablet) 650 mg PO Q6H PRN PRN Reason: Headache/Pain, Scale 1-10 Last Admin: 04/13/24 09:13 Dose: 650 mg Al Hydroxide/Mg Hydroxide (Magnesium Hydrox/Alum Hydrox 30 Ml Oral.Susp) 30 ml PO Q6H PRN PRN Reason: Heartburn/Nausea Albuterol Sulfate (Albuterol Sulfate 90 Mcg 8 Gm Inhaler) 2 puff INHALE RQ4H PRN PRN Reason: sob Last Admin: 04/12/24 10:24 Dose: 2 puff Cyclobenzaprine HCl (Cyclobenzaprine Hcl 5 Mg Tablet) 5 mg PO BEDTIME PRN PRN Reason: muscle cramps Last Admin: 04/12/24 20:58 Dose: 5 mg Folic Acid (Folic Acid 1 Mg Tablet) 1 mg PO DAILY [facility] Last Admin: 04/13/24 09:14 Dose: 1 mg Guaifenesin/Dextromethorphan (Guaifenesin Dm 200/20/10 Ml 10 Ml Syrup) 10 ml PO Q4H PRN PRN Reason: Cough Last Admin: 04/13/24 09:14 Dose: 10 ml Hydroxyzine HCl (Hydroxyzine Hcl 25 Mg Tablet) 25 mg PO Q6H PRN PRN Reason: mild anxiety Last Admin: 04/12/24 20:59 Dose: 25 mg Lamotrigine (Lamotrigine 100 Mg Tablet) 200 mg PO DAILY [facility] Last Admin: 04/13/24 09:13 Dose: 200 mg [place] Carbonate ([place] Carbonate Er 300 Mg Tablet.Er) 1,200 mg PO BEDTIME ALEX Last Admin: 04/12/24 20:58 Dose: 1,200 mg Loperamide HCl (Loperamide Hcl 2 Mg Capsule) 2 mg PO Q6H PRN PRN Reason: Loose Stool Last Admin: 04/11/24 16:03 Dose: 2 mg Magnesium Hydroxide (Milk Of Magnesia 30 Ml Oral.Susp) 30 ml PO DAILY PRN PRN Reason: Constipation Meclizine HCl (Meclizine Hcl 12.5 Mg Tablet) 12.5 mg PO DAILY PRN PRN Reason: Vertigo Nicotine (Nicotine 21 Mg Patch.Td24) 21 mg TRANSDERMA DAILY PRN PRN Reason: smoking cessation Nicotine Polacrilex (Nicotine Polacrilex 2 Mg Gum) 2 mg BUCCAL Q2H PRN PRN Reason: Nicotine Cravings Last Admin: 04/11/24 14:26 Dose: 2 mg Nicotine Polacrilex (Nicotine Polacrilex 2 Mg Gum) 4 mg BUCCAL Q2H PRN PRN Reason: Nicotine Cravings Last Admin: 04/12/24 18:28 Dose: 4 mg Olanzapine (Olanzapine 5 Mg Tablet) 5 mg PO TID PRN PRN Reason: agitation Last Admin: 04/12/24 14:36 Dose: 5 mg Oseltamivir Phosphate (Oseltamivir Phosphate 75 Mg Capsule) 75 mg PO Q12H ALEX Stop: 04/17/24 09:01 Last Admin: 04/13/24 09:14 Dose: 75 mg Prazosin HCl (Prazosin Hcl 1 Mg Capsule) 1 mg PO BEDTIME ALEX; Protocol Last Admin: 04/12/24 20:58 Dose: 1 mg Thiamine HCl (Thiamine Hcl 100 Mg Tablet) 100 mg PO DAILY ALEX Last Admin: 04/13/24 09:14 Dose: 100 mg Trazodone HCl (Trazodone Hcl 50 Mg Tablet) 50 mg PO BEDTIME MRX1 PRN PRN Reason: Insomnia Last Admin: 04/12/24 21:00 Dose: 50 mg Allergies Allergies Allergy/AdvReac Type Severity Reaction Status Date / Time No Known Allergies Allergy Verified 04/08/24 06:02 [No Known Allergies*] Assessment & Plan Assessment & Plan (1) Bipolar disorder: Status: Acute Code(s): F31.9 - Bipolar disorder, unspecified (2) PTSD (post-traumatic stress disorder): Status: Acute Code(s): F43.10 - Post-traumatic stress disorder, unspecified (3) Alcohol use disorder: Status: Acute Code(s): F10.90 - Alcohol use, unspecified, uncomplicated (4) TBI (traumatic brain injury): Status: Acute Code(s): S06.9XAA - Unspecified intracranial injury with loss of consciousness status unknown, initial encounter Plan HPI: Pt is a 43 yo male with hx of Bipolar dx, PtSD, TBI alcohol use disorder, who presents for depression and making SI statements in face of being off lithium and intoxication. Pt reports it's been a tough month and lists multiple psychosocial stressors including of a friend. About 2 weeks ago he ran out of [place] due to provider mix up (?) which has made it harder to cope w/ feelings. Pt reports he binge drinks only on weekends when not w/ daughter; this past weekend he was unable to see his beloved 10 yo daughter so started drinking and once intoxicated became agitated, slamming doors, yelling and making suicidal statements in front of his 17 yo step-son who called 911. At ED pt made suicidal statements as well. Now, pt says he must have blacked out, which is common, and does not remember saying any SI; he does not dispute it, but says he has not been had any actual SI at all and would never hurt himself, love of his daughters a strong protective factor. On going ptsd symptoms; denies other substance abuse except for cannabis; wants to get back on [place] Formulation/Clinical reasoning: Carries Bipolar dx and currently depressed from both psychosocial stressors and being off lithium. Will continue home meds and restart [place]. Sustained TBI last year and binge drinking both contributory -Regarding substance abuse treatment and risks discussed with patient who at this time patient declines MAT or help with outpt treatment options including programs; instead patient is choosing to work out sobriety on own -patient coughing and reports sudden onset of congestive cough; afebrile and WBC WNL however given recent intoxication, agitation and blackout will get chest x-ray to rule out possible aspiration pneumonia Hospital course: 3/5Patient reports mood is better; no SI. Patient says he slept well and appreciates lithium being moved to bedtime. Says he was drinking for about 2-3 days and denies any withdrawal Patient however complains of general malaise with worsen cough, SOB; RR 20 though afebrile Auscultation and law writer appreciated b/l Wheeze/rhonic on exhalation - Hospitalist consult -ordering 2nd CXR since worsening symptoms (yesterdays unremarkable) -CBC -influenza positive 04/13 continue tx plan PLAN: CV q15min DC CIWA Continue home meds restart [place] ER -collateral Reports has been taking regularly: lamictal, Prozac, gabapentin, prazosin, +/2trazodone -no longer on Zyprexa (not sure if it ever helped) Patient educated on: diagnosis, medication risk/benefits and medical condition Informed Consent: understands Reason for continued inpatient stay Substantial Risk for: stable for discharge and rapid decompensation Time Spent With Patient Time: Total time managing care of this patient today ____ minutes.
[2024-04-13] MEDS: Ondansetron ODT 4 MG TAB.RAPDIS TRANSLINGU (09:21)
[2024-04-13] MEDS: Nicotine Polacrilex 2 MG GUM 4 MG BUCCAL ×2 (13:12→18:22)
[2024-04-13] MEDS: hydrOXYzine HCL 25 MG TABLET PO (13:12)
[2024-04-13] MEDS: Meclizine HCl 12.5 MG TABLET PO (17:32)
[2024-04-13 20:00] VITALS: BP 130/71; PULSE 77; TEMP 36.7; O2SAT 97
[2024-04-13] MEDS: Nicotine Polacrilex 2 MG GUM BUCCAL (21:03)
[2024-04-13] MEDS: traZODone HCL 50 MG TABLET PO (21:41)
[2024-04-13] MEDS: Lithium Carbonate ER 300 MG TABLET.ER 1200 MG PO (21:42)
[2024-04-13 21:43] VITALS: BP 130/71
[2024-04-13] MEDS: Prazosin HCL 1 MG CAPSULE PO (21:43)
[2024-04-14 05:55] VITALS: BP 159/93; PULSE 69; TEMP 36.4; O2SAT 97
[2024-04-14 06:24] LABS: Glucose, Whole Blood 121 mg/dL (60-115)
[2024-04-14] MEDS: Acetaminophen 325 MG TABLET 650 MG PO ×2 (06:27→11:46)
[2024-04-14 08:00] VITALS: BP 122/81; PULSE 75; RESP 16; TEMP 36.9; O2SAT 97
--- NOTE | 2024-04-14 08:49 | PC.NURSE ---
Pt reports he woke feeling he needed to urgently have a bowel movement. Pt got up quickly from bed and went into bathroom. As pt was standing in front of the toilet, pt reports he became dizzy, falling forward. Pt stated he did not hit his head, but did hit his right elbow against the sink as he went down. Pt stated he fell to the floor between the sink and toilet. Pt asked for several towels to clean himself as he had experienced fecal incontinence after falling. Pt came out of bathroom shortly after cleaning self and stated then that he had fallen in the bathroom. Vital signs obtained at 05:55 as follows; 159/93, 69, 97.5 F, 97%O2, 121 POC BS. [facility] notified at 0614; OnCall provider informed at 0622. Pt offered and given PRN Tylenol with some good effect. Pt should be offered a brief at HS so pt will feel he can take the time to transfer safely from bed.
[2024-04-14 08:59] VITALS: PULSE 69; RESP 16; TEMP 36.4; O2SAT 97
[2024-04-14] MEDS: Folic Acid 1 MG TABLET PO (09:14)
[2024-04-14] MEDS: lamoTRIgine 100 MG TABLET 200 MG PO (09:14)
[2024-04-14] MEDS: Nicotine Polacrilex 2 MG GUM 4 MG BUCCAL ×4 (09:14→21:19)
[2024-04-14] MEDS: Thiamine HCL 100 MG TABLET PO (09:14)
[2024-04-14] MEDS: Meclizine HCl 12.5 MG TABLET PO (09:15)
[2024-04-14] MEDS: Oseltamivir Phosphate 75 MG CAPSULE PO ×2 (09:15→20:54)
--- NOTE | 2024-04-14 10:05 | HO.PSYCHPN ---
Subjective Subjective Date of Service: 04/14/24 Reason For Visit: Depressed Interim History: Met with patient; discussed with team Patient reports feeling much better, good mood and feeling ready to go. Flu symptoms subsiding. He had a fall last night where he only hit his right elbow and x-ray unremarkable. Patient feeling optimistic about sobriety feels good about medication regimen. Thankful for help received. IMPRESSION: Unremarkable examination of the right elbow. Mental Status Exam Mental Status Exam Narrative: Pt is alert and oriented; behavior is cooperative, friendly and calm; patient is not in distress; dressed in casual attire with adequate hygiene; mood is described as good and affect congruent; eye contact appropriate; Speech is normal rate, volume and prosody and not pressured; no psychomotor agitation/retardation present; thought process is organized and goal directed; Thought content is on tx; otherwise pertinent to relevant topics and without any delusional content, paranoid ideations or grandiosity; denies any SI/HI. There is no evidence of perceptual disturbance. Patients insight and judgment appear intact. Diagnostics Vital Signs (24Hr): Vital Signs - 24 hr 04/13/24 20:00 04/13/24 21:43 04/14/24 05:55 Temperature 98.0 F 97.5 F Pulse Rate 77 69 Respiratory Rate Blood Pressure 130/71 130/71 159/93 H Pulse Oximetry 97 97 Oxygen Delivery Method Room Air Room Air 04/14/24 08:00 04/14/24 08:59 Temperature 98.4 F 97.5 F Pulse Rate 75 69 Respiratory Rate 16 16 Blood Pressure 122/81 Pulse Oximetry 97 97 Oxygen Delivery Method BMI result Body Mass Index 26.7 Labs 04/12/24 11:08 04/08/24 08:25 Labs: Laboratory Results - last 48 hr 04/12/24 04/12/24 04/14/24 11:08 13:25 06:19 WBC 6.2 RBC 4.99 Hgb 16.1 Hct 44.7 MCV 89.6 MCH 32.3 MCHC 36.0 RDW 12.9 Plt Count 167 D MPV 10.3 Immature Gran % (Auto) 0.3 Neut % (Auto) 61.4 Lymph % (Auto) 22.8 [place] % (Auto) 14.4 H Eos % (Auto) 0.6 Baso % (Auto) 0.5 Lymph # (Auto) 1.4 [place] # (Auto) 0.9 Eos # (Auto) 0.0 Baso # (Auto) 0.0 Abs Immat Gran (auto) 0.02 Absolute Neuts (auto) 3.8 Absolute Nucleated RBC 0.000 Nucleated RBC % (auto) 0.0 POC Glucose 121 H Influenza Type A (PCR) POSITIVE A Influenza Type B (PCR) NEGATIVE RSV RNA Qual (PCR) NEGATIVE SARS-CoV-2 RNA (RT-PCR) NEGATIVE Imaging Radiology Impressions: ITS Impressions Chest X-Ray 04/11/24 11:55 IMPRESSION: Normal x-ray. Electronically signed by: Xavier Fuchs MD 04/11/2024 12:03 PM EST RP Chest X-Ray 04/12/24 10:44 IMPRESSION: No acute airspace disease. Electronically signed by: Xavier Fuchs MD 04/12/2024 11:12 AM EST RP Medications Medications Current Medications Acetaminophen (Acetaminophen 325 Mg Tablet) 650 mg PO Q6H PRN PRN Reason: Headache/Pain, Scale 1-10 Last Admin: 04/14/24 06:27 Dose: 650 mg Al Hydroxide/Mg Hydroxide (Magnesium Hydrox/Alum Hydrox 30 Ml Oral.Susp) 30 ml PO Q6H PRN PRN Reason: Heartburn/Nausea Albuterol Sulfate (Albuterol Sulfate 90 Mcg 8 Gm Inhaler) 2 puff INHALE RQ4H PRN PRN Reason: sob Last Admin: 04/12/24 10:24 Dose: 2 puff Cyclobenzaprine HCl (Cyclobenzaprine Hcl 5 Mg Tablet) 5 mg PO BEDTIME PRN PRN Reason: muscle cramps Last Admin: 04/12/24 20:58 Dose: 5 mg Folic Acid (Folic Acid 1 Mg Tablet) 1 mg PO DAILY ALEX Last Admin: 04/14/24 09:14 Dose: 1 mg Guaifenesin/Dextromethorphan (Guaifenesin Dm 200/20/10 Ml 10 Ml Syrup) 10 ml PO Q4H PRN PRN Reason: Cough Last Admin: 04/13/24 09:14 Dose: 10 ml Hydroxyzine HCl (Hydroxyzine Hcl 25 Mg Tablet) 25 mg PO Q6H PRN PRN Reason: mild anxiety Last Admin: 04/13/24 13:12 Dose: 25 mg Lamotrigine (Lamotrigine 100 Mg Tablet) 200 mg PO DAILY A[facility] Last Admin: 04/14/24 09:14 Dose: [address] [place] Carbonate ([place] Carbonate Er 300 Mg Tablet.Er) 1,200 mg PO BEDTIME ALEX Last Admin: 04/13/24 21:42 Dose: 1,200 mg Loperamide HCl (Loperamide Hcl 2 Mg Capsule) 2 mg PO Q6H PRN PRN Reason: Loose Stool Last Admin: 04/11/24 16:03 Dose: 2 mg Magnesium Hydroxide (Milk Of Magnesia 30 Ml Oral.Susp) 30 ml PO DAILY PRN PRN Reason: Constipation Meclizine HCl (Meclizine Hcl 12.5 Mg Tablet) 12.5 mg PO DAILY PRN PRN Reason: Vertigo Last Admin: 04/14/24 09:15 Dose: 12.5 mg Nicotine (Nicotine 21 Mg Patch.Td24) 21 mg TRANSDERMA DAILY PRN PRN Reason: smoking cessation Nicotine Polacrilex (Nicotine Polacrilex 2 Mg Gum) 2 mg BUCCAL Q2H PRN PRN Reason: Nicotine Cravings Last Admin: 04/13/24 21:03 Dose: 2 mg Nicotine Polacrilex (Nicotine Polacrilex 2 Mg Gum) 4 mg BUCCAL Q2H PRN PRN Reason: Nicotine Cravings Last Admin: 04/14/24 09:14 Dose: 4 mg Olanzapine (Olanzapine 5 Mg Tablet) 5 mg PO TID PRN PRN Reason: agitation Last Admin: 04/12/24 14:36 Dose: 5 mg Ondansetron HCl (Ondansetron Odt 4 Mg Tab.Rapdis) 4 mg TRANSLINGU Q6H PRN PRN Reason: Nausea and Vomiting Last Admin: 04/13/24 09:21 Dose: 4 mg Oseltamivir Phosphate (Oseltamivir Phosphate 75 Mg Capsule) 75 mg PO Q12H ALEX Stop: 04/17/24 09:01 Last Admin: 04/14/24 09:15 Dose: 75 mg Prazosin HCl (Prazosin Hcl 1 Mg Capsule) 1 mg PO BEDTIME ALEX; Protocol Last Admin: 04/13/24 21:43 Dose: 1 mg Thiamine HCl (Thiamine Hcl 100 Mg Tablet) 100 mg PO DAILY ALEX Last Admin: 04/14/24 09:14 Dose: 100 mg Trazodone HCl (Trazodone Hcl 50 Mg Tablet) 50 mg PO BEDTIME MRX1 PRN PRN Reason: Insomnia Last Admin: 04/13/24 21:41 Dose: 50 mg Allergies Allergies Allergy/AdvReac Type Severity Reaction Status Date / Time No Known Allergies Allergy Verified 04/08/24 06:02 [No Known Allergies*] Assessment & Plan Assessment & Plan (1) Bipolar disorder: Status: Acute Code(s): F31.9 - Bipolar disorder, unspecified (2) PTSD (post-traumatic stress disorder): Status: Acute Code(s): F43.10 - Post-traumatic stress disorder, unspecified (3) Alcohol use disorder: Status: Acute Code(s): F10.90 - Alcohol use, unspecified, uncomplicated (4) TBI (traumatic brain injury): Status: Acute Code(s): S06.9XAA - Unspecified intracranial injury with loss of consciousness status unknown, initial encounter Plan HPI: Pt is a 43 yo male with hx of Bipolar dx, PtSD, TBI alcohol use disorder, who presents for depression and making SI statements in face of being off lithium and intoxication. Pt reports it's been a tough month and lists multiple psychosocial stressors including of a friend. About 2 weeks ago he ran out of [place] due to provider mix up (?) which has made it harder to cope w/ feelings. Pt reports he binge drinks only on weekends when not w/ daughter; this past weekend he was unable to see his beloved 10 yo daughter so started drinking and once intoxicated became agitated, slamming doors, yelling and making suicidal statements in front of his 17 yo step-son who called 911. At ED pt made suicidal statements as well. Now, pt says he must have blacked out, which is common, and does not remember saying any SI; he does not dispute it, but says he has not been had any actual SI at all and would never hurt himself, love of his daughters a strong protective factor. On going ptsd symptoms; denies other substance abuse except for cannabis; wants to get back on [place] Formulation/Clinical reasoning: Carries Bipolar dx and currently depressed from both psychosocial stressors and being off lithium. Will continue home meds and restart [place]. Sustained TBI last year and binge drinking both contributory -Regarding substance abuse treatment and risks discussed with patient who at this time patient declines MAT or help with outpt treatment options including programs; instead patient is choosing to work out sobriety on own -patient coughing and reports sudden onset of congestive cough; afebrile and WBC WNL however given recent intoxication, agitation and blackout will get chest x-ray to rule out possible aspiration pneumonia Hospital course: 35Patient reports mood is better; no SI. Patient says he slept well and appreciates lithium being moved to bedtime. Says he was drinking for about 2-3 days and denies any withdrawal Patient however complains of general malaise with worsen cough, SOB; RR 20 though afebrile Auscultation and job specification writer appreciated b/l Wheeze/rhonic on exhalation - Hospitalist consult -ordering 2nd CXR since worsening symptoms (yesterdays unremarkable) -CBC -influenza positive 04/13 continue tx plan 04/14 Patient reports feeling much better, good mood and feeling ready to go. Flu symptoms subsiding. He had a fall last night where he only hit his right elbow and x-ray unremarkable. Patient feeling optimistic about sobriety feels good about medication regimen. Thankful for help received. Right elbow x-ray IMPRESSION: Unremarkable examination of the right elbow. Patient has remained in good behavioral and impulse control throughout his time in the unit. Depression abated and patient is in a good mood, optimistic and future oriented. He is returning home to a supportive family. Patient is not in imminent risk for harm to self or others and appropriate to return to the community for discharge. PLAN: CV q15min DC CIWA Continue home meds restart [facility] -collateral Reports has been taking regularly: lamictal, Prozac, gabapentin, prazosin, +/2trazodone -no longer on Zyprexa (not sure if it ever helped) Patient educated on: diagnosis, medication risk/benefits, substance abuse and medical condition Informed Consent: understands Reason for continued inpatient stay Substantial Risk for: stable for discharge Time Spent With Patient Time: Total time managing care of this patient today ____ minutes.
[2024-04-14] MEDS: Ondansetron ODT 4 MG TAB.RAPDIS TRANSLINGU ×3 (11:47→22:29)
[2024-04-14] MEDS: hydrOXYzine HCL 25 MG TABLET PO (16:04)
--- NOTE | 2024-04-14 18:43 | P.DS_ITS ---
DS: Providers Provider Date of Service: 04/15/24 Date of admission: 04/10/24 14:27 Date of discharge: 04/15/24 Primary care physician: Unknown Physician Attending physician on admission: Felix Goyal Consults: 04/10/24 17:17 Addiction Medicine Routine Consulting Provider: Addiction Covering Reason for consultation: ETOH, cannabis Has provider been notified: Yes 04/12/24 10:32 Consult to Hospitalist Routine Comment: Consulting Provider: [facility] Reason For Exam: sudden onset cough/SOB; b/l wheeze on exhalation Attending physician on discharge: Josh Clay DS: Diagnosis Discharge Diagnosis (1) Bipolar disorder: Status: Acute (2) PTSD (post-traumatic stress disorder): Status: Acute (3) Alcohol use disorder: Status: Acute (4) TBI (traumatic brain injury): Status: Acute DS: Medications Discharge Medications Home Medications: Previous Rx's ?Medication ?Instructions ?Recorded cyclobenzaprine 5 mg tablet 5 mg PO BEDTIME PRN muscle spasm 04/14/24 30 days #30 tabs lamotrigine 100 mg tablet 200 mg (2 x 100 mg) PO DAILY 30 04/14/24 days #60 tabs lithium carbonate 300 mg 1,200 mg (4 x 300 mg) PO BEDTIME 04/14/24 tablet,extended release 30 days #120 tabs meclizine 12.5 mg tablet 12.5 mg PO DAILY PRN Vertigo 30 04/14/24 days #30 tabs nicotine (polacrilex) 2 mg gum 4 mg buccal Q2H PRN Nicotine 04/14/24 Cravings 30 days #100 ea olanzapine 5 mg tablet 5 mg PO DAILY PRN agitation/severe 04/14/24 anxiety 30 days #30 tabs prazosin 1 mg capsule 1 mg PO BEDTIME 30 days #30 caps 04/14/24 trazodone 50 mg tablet 50 mg PO BEDTIME PRN Insomnia 30 04/14/24 days #30 tabs Mental Status Exam Mental Status Exam Narrative: In today's visit he is alert, oriented, pleasant and cooperative. Speech is normal. Good eye contact. Affect is appropriate and varied. No signs of depression, hypomania or psychosis. He little denies any suicidal homicidal ideations. Cognitively he is intact. Judgment is intact. He is able to move all limbs and uses a walker. No gait abnormalities. Data Data Completed and Pending Completed studies during hospitalization [Text1]: 04/08/24 04/08/24 04/11/24 08:25 08:28 07:54 WBC 7.5 RBC 5.07 Hgb 16.3 Hct 45.3 MCV 89.3 MCH 32.1 MCHC 36.0 RDW 13.2 Plt Count 265 MPV 10.6 Immature Gran % (Auto) 0.4 Neut % (Auto) 58.9 Lymph % (Auto) 30.1 [place] % (Auto) 8.1 Eos % (Auto) 2.0 Baso % (Auto) 0.5 Lymph # (Auto) 2.3 [place] # (Auto) 0.6 Eos # (Auto) 0.2 Baso # (Auto) 0.0 Abs Immat Gran (auto) 0.03 Absolute Neuts (auto) 4.4 Absolute Nucleated RBC 0.000 Nucleated RBC % (auto) 0.0 PT 10.1 L INR 0.9 Sodium 142 Potassium 3.8 Chloride 110 H Carbon Dioxide 20 L Anion Gap 16 BUN 11 Creatinine 0.78 Estim Creat Clear Calc 115.0 Estimated GFR > 60 POC Glucose Random Glucose 120 H Estimat Average Glucose 94 Hemoglobin A1c % 4.9 Calcium 9.1 D Magnesium 2.4 Total Bilirubin 0.3 AST 28 ALT 68 H Alkaline Phosphatase 62 Total Protein 8.0 Albumin 4.8 Triglycerides 147 Cholesterol 231 H LDL Cholesterol, Calc 159 H HDL Cholesterol 43 Lipase 62 TSH 1.60 Urine Color Yellow Urine Appearance Clear Urine pH 5.5 Ur Specific [place] <= 1.005 Urine Protein Negative Urine Glucose (UA) Negative Urine Ketones Negative Urine Blood Negative Urine Nitrite Negative Ur Leukocyte Esterase Negative Urine Opiates Screen Not Detected Ur Buprenorphine Scrn Not Detected Ur Oxycodone Screen Not Detected Urine Methadone Screen Not Detected Urine Fentanyl Screen Not Detected Ur Barbiturates Screen Not Detected Ur Phencyclidine Scrn Not Detected Ur Amphetamines Screen Not Detected U Benzodiazepines Scrn Not Detected Urine Cocaine Screen Not Detected U Marijuana (THC) Screen POSITIVE H Ethyl Alcohol 249 Influenza Type A (PCR) Influenza Type B (PCR) RSV RNA Qual (PCR) SARS-CoV-2 RNA (RT-PCR) 04/12/24 04/12/24 04/14/24 11:08 13:25 06:19 WBC 6.2 RBC 4.99 Hgb 16.1 Hct 44.7 MCV 89.6 MCH 32.3 MCHC 36.0 RDW 12.9 Plt Count 167 D MPV 10.3 Immature Gran % (Auto) 0.3 Neut % (Auto) 61.4 Lymph % (Auto) 22.8 [place] % (Auto) 14.4 H Eos % (Auto) 0.6 Baso % (Auto) 0.5 Lymph # (Auto) 1.4 [place] # (Auto) 0.9 Eos # (Auto) 0.0 Baso # (Auto) 0.0 Abs Immat Gran (auto) 0.02 Absolute Neuts (auto) 3.8 Absolute Nucleated RBC 0.000 Nucleated RBC % (auto) 0.0 PT INR Sodium Potassium Chloride Carbon Dioxide Anion Gap BUN Creatinine Estim Creat Clear Calc Estimated GFR POC Glucose 121 H Random Glucose Estimat Average Glucose Hemoglobin A1c % Calcium Magnesium Total Bilirubin AST ALT Alkaline Phosphatase Total Protein Albumin Triglycerides Cholesterol LDL Cholesterol, Calc HDL Cholesterol Lipase TSH Urine Color Urine Appearance Urine pH Ur Specific [place] Urine Protein Urine Glucose (UA) Urine Ketones Urine Blood Urine Nitrite Ur Leukocyte Esterase Urine Opiates Screen Ur Buprenorphine Scrn Ur Oxycodone Screen Urine Methadone Screen Urine Fentanyl Screen Ur Barbiturates Screen Ur Phencyclidine Scrn Ur Amphetamines Screen U Benzodiazepines Scrn Urine Cocaine Screen U Marijuana (THC) Screen Ethyl Alcohol Influenza Type A (PCR) POSITIVE A Influenza Type B (PCR) NEGATIVE RSV RNA Qual (PCR) NEGATIVE SARS-CoV-2 RNA (RT-PCR) NEGATIVE Imaging Diagnostic Imaging Impressions Chest X-Ray 04/11/24 11:55 IMPRESSION: Normal x-ray. Electronically signed by: Xavier Fuchs MD 04/11/2024 12:03 PM EST RP Chest X-Ray 04/12/24 10:44 IMPRESSION: No acute airspace disease. Electronically signed by: Xavier Fuchs MD 04/12/2024 11:12 AM EST RP Elbow X-Ray 04/14/24 14:40 IMPRESSION: Unremarkable examination of the right elbow. Electronically signed by: Bhanu Onofre MD 04/14/2024 02:59 PM EST RP DS: Summary Hospital Course Hospital Course: HPI: Pt is a 43 yo male with hx of Bipolar dx, PtSD, TBI alcohol use disorder, who presents for depression and making SI statements in face of being off lithium and intoxication. Pt reports it's been a tough month and lists multiple psychosocial stressors including of a friend. About 2 weeks ago he ran out of [place] due to provider mix up (?) which has made it harder to cope w/ feelings. Pt reports he binge drinks only on weekends when not w/ daughter; this past weekend he was unable to see his beloved 10 yo daughter so started drinking and once intoxicated became agitated, slamming doors, yelling and making suicidal statements in front of his 17 yo step-son who called 911. At ED pt made suicidal statements as well. Now, pt says he must have blacked out, which is common, and does not remember saying any SI; he does not dispute it, but says he has not been had any actual SI at all and would never hurt himself, love of his daughters a strong protective factor. On going ptsd symptoms; denies other substance abuse except for cannabis; wants to get back on [place] Formulation/Clinical reasoning: Carries Bipolar dx and currently depressed from both psychosocial stressors and being off lithium. Will continue home meds and restart [place]. Sustained TBI last year and binge drinking both contributory -Regarding substance abuse treatment and risks discussed with patient who at this time patient declines MAT or help with outpt treatment options including programs; instead patient is choosing to work out sobriety on own -patient coughing and reports sudden onset of congestive cough; afebrile and WBC WNL however given recent intoxication, agitation and blackout will get chest x- ray to rule out possible aspiration pneumonia Regarding Substance abuse treatment and risks, this was discussed with patient who at this time patient declines MAT or help with outpt treatment options including programs; instead patient is choosing to work out sobriety on own Hospital course: On admission patient had some depression but mood was already improving and passive SI fully resolved. Patient wanted to get back on home medication regimen which included lithium which was restarted. Patient's mood soon significantly improved and depression abated. He reported sleeping well and appreciated lithium being moved to bedtime. Patient had only been drinking for about 2-3 days and withdrawal symptoms fully resolved. Patient remained in good behavioral and impulse control and was appropriate with peers and staff. His admission was complicated by getting the flu which kept him in bed for several days; he did have an unwitnessed fall, but only hit his elbow and x-ray unremarkable.. Patient remained in good mood, behavioral control, was organized in speech and behavior and appropriate with peers and staff. Patient asked for discharge, eager to get back home to his supportive family and eager to see his daughter whom he has for the weekend. Early in the morning on the day of disc har, patient woke up, was crying and made suicidal statements to the nurse but calmed down and went back to bed. There was consideration about postponing his discharge however when he woke up later, and met with the on-call psychiatrist Dr. Clay, he reported that the crying spell and SI comments were only due to a bad dream and that he only had vague memories of the whole interaction with [facility] nurse. He reported that he remains in a good mood and without any SI at all and looking forward to discharging to see his family.. Up until this boardmarker incident, patient had been without any SI at all, in good mood, future oriented and focused on returning to his family. Covering provider concluded that this morning's episode has fully resolved, that patient was indeed back to his regular self and not in imminent risk for harm to self or others; proceeded with discharge plan. Time spent discussing smoking cessation with patient: 3 to 10 minutes Status at Discharge Functional status at discharge: independent ambulation Overall status at discharge: patient is back to baseline Time Spent with Patient Time attestation: Total time managing care of this patient today ____ minutes. Time spent: Less than 30 minutes Discharge Plan Discharge Anticipated Discharge Date/Time: 04/15/24 23:00 Patient Disposition: Home, Self-Care Discharge Diagnosis: bipolar disorder, unspecified, most recent episode depressive, in full remission Referrals: Tori Humphries: [facility] (therapy) [Other] - 04/18/24 11:00 am (Initial diagnostic evaluation for therapy Appointment is in person at [facility] in [place]) Lara Meza: [facility] (psychiatry) [Other] - 05/22/24 11:00 am (Initial psychiatric evaluation for psychiatric medication management Appointment is in person at [facility] ) [facility] [Other] - 1 Week ([facility] Referral Patient should follow-up with agency after discharge ) Physician,Vivi J [Primary Care Provider] - 1 Week (Pt will follow up with PCP after discharge. ) Discharge Medications: New nicotine (polacrilex) 2 mg Gum 4 mg buccal Q2H PRN (Reason: Nicotine Cravings) 30 Days Qty: 100 0RF lamotrigine 100 mg Tablet 200 mg PO DAILY 30 Days Qty: 60 0RF lithium carbonate 300 mg Tablet Extended Release 1,200 mg PO BEDTIME 30 Days Qty: 120 0RF trazodone 50 mg Tablet 50 mg PO BEDTIME PRN (Reason: Insomnia) 30 Days Qty: 30 0RF meclizine 12.5 mg Tablet 12.5 mg PO DAILY PRN (Reason: Vertigo) 30 Days Qty: 30 0RF olanzapine 5 mg Tablet 5 mg PO DAILY PRN (Reason: agitation/severe anxiety) 30 Days Qty: 30 0RF Continued prazosin 1 mg capsule 1 mg PO BEDTIME 30 Days Qty: 30 0RF Changed cyclobenzaprine 5 mg tablet 5 mg PO BEDTIME PRN (Reason: muscle spasm) 30 Days Qty: 30 0RF Discharge Orders: Discharge Order (Routine); Ordered 04/15/24 Ordered By: Josh Clay Diet: Regular diet Activity on Discharge: As tolerated Stand Alone Forms: Patient Portal Discharge page, Community Support Print Language: Icelandic Care Plan Goals: Maintain mood and safe behaviors Take medications as prescribed Continue to pursue sobriety Practice coping skills Continue with outpatient providers and reach out to them as needed Health Concerns: Mood stability and behaviors Sobriety Plan of Treatment: Follow up with your PCP, psychiatric provider and other outpatient providers regarding above concerns Take medications as prescribed Assessment: Risk assessment at time of discharge:? Patient was interviewed prior to discharge and found to be fully oriented and without any SI or HI. Patient has improved insight and judgment and wants to continue treatment. Patient is not in imminent risk of harm to self or others and has a safety plan that includes presenting to the closest ER or calling 911 if feeling unsafe.? Patient has been observed closely by nursing and unit staff throughout admission; patient has not engaged in any behaviors that suggest dangerousness to self or others and has demonstrated appropriate behaviors and impulse control Discharge Date/Time: 04/15/24 10:53
[2024-04-14 20:00] VITALS: BP 142/91; PULSE 71; RESP 16; TEMP 36.6; O2SAT 97
[2024-04-14] MEDS: Lithium Carbonate ER 300 MG TABLET.ER 1200 MG PO (20:54)
[2024-04-14] MEDS: Prazosin HCL 1 MG CAPSULE PO (20:54)
[2024-04-14] MEDS: traZODone HCL 50 MG TABLET PO (20:54)
[2024-04-15] MEDS: OLANZapine 5 MG TABLET PO (03:26)
[2024-04-15] MEDS: Acetaminophen 325 MG TABLET 650 MG PO (03:26)
[2024-04-15] MEDS: hydrOXYzine HCL 25 MG TABLET PO (03:27)
[2024-04-15] MEDS: traZODone HCL 50 MG TABLET PO (03:27)
[2024-04-15] MEDS: Meclizine HCl 12.5 MG TABLET PO (03:27)
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
[2024-04-15 08:00] VITALS: PULSE 86; RESP 18; TEMP 36.5; O2SAT 96
[2024-04-15] MEDS: Oseltamivir Phosphate 75 MG CAPSULE PO (09:18)
[2024-04-15] MEDS: lamoTRIgine 100 MG TABLET 200 MG PO (09:18)
[2024-04-15] MEDS: Thiamine HCL 100 MG TABLET PO (09:18)
[2024-04-15] MEDS: Folic Acid 1 MG TABLET PO (09:18)
--- NOTE | 2024-04-15 09:54 | HO.PSYCHPN ---
Subjective Subjective Date of Service: 04/15/24 Reason For Visit: Depressed Subjective Notes: Conditional Voluntary Interim History: Patient was seen and discussed in rounds today. Records and plans were reviewed. He is set for discharge. Last night after waking up from a nightmare he had said some things to the nurse that may have been misconstrued has being suicidal which he flatly denies. He denies any history of suicide attempts of serious nature. I did also speak with Dr. Goyal and we are proceeding with the discharge. Has outpatient connections Review of Systems Review of Systems Yes all other systems are reviewed and are negative Mental Status Exam Mental Status Exam Narrative: In today's visit he is alert, oriented, pleasant and cooperative. Speech is normal. Good eye contact. Affect is appropriate and varied. No signs of depression, hypomania or psychosis. He little denies any suicidal homicidal ideations. Cognitively he is intact. Judgment is intact. He is able to move all limbs and uses a walker. No gait abnormalities. Diagnostics Vital Signs (24Hr): Vital Signs - 24 hr 04/14/24 20:00 Temperature 97.8 F Pulse Rate 71 Respiratory Rate 16 Blood Pressure 142/91 H Pulse Oximetry 97 Oxygen Delivery Method Room Air BMI result Body Mass Index 26.7 Labs 04/12/24 11:08 04/08/24 08:25 Labs: Laboratory Results - last 48 hr 04/14/24 06:19 POC Glucose 121 H Imaging Radiology Impressions: ITS Impressions Chest X-Ray 04/11/24 11:55 IMPRESSION: Normal x-ray. Electronically signed by: Xavier Fuchs MD 04/11/2024 12:03 PM EST RP Chest X-Ray 04/12/24 10:44 IMPRESSION: No acute airspace disease. Electronically signed by: Xavier Fuchs MD 04/12/2024 11:12 AM EST RP Elbow X-Ray 04/14/24 14:40 IMPRESSION: Unremarkable examination of the right elbow. Electronically signed by: Bhanu Onofre MD 04/14/2024 02:59 PM EST RP Medications Medications Current Medications Acetaminophen (Acetaminophen 325 Mg Tablet) 650 mg PO Q6H PRN PRN Reason: Headache/Pain, Scale 1-10 Last Admin: 04/15/24 03:26 Dose: 650 mg Al Hydroxide/Mg Hydroxide (Magnesium Hydrox/Alum Hydrox 30 Ml Oral.Susp) 30 ml PO Q6H PRN PRN Reason: Heartburn/Nausea Albuterol Sulfate (Albuterol Sulfate 90 Mcg 8 Gm Inhaler) 2 puff INHALE RQ4H PRN PRN Reason: sob Last Admin: 04/12/24 10:24 Dose: 2 puff Cyclobenzaprine HCl (Cyclobenzaprine Hcl 5 Mg Tablet) 5 mg PO BEDTIME PRN PRN Reason: muscle cramps Last Admin: 04/12/24 20:58 Dose: 5 mg Folic Acid (Folic Acid 1 Mg Tablet) 1 mg PO DAILY ALEX Last Admin: 04/15/24 09:18 Dose: 1 mg Guaifenesin/Dextromethorphan (Guaifenesin Dm 200/20/10 Ml 10 Ml Syrup) 10 ml PO Q4H PRN PRN Reason: Cough Last Admin: 04/13/24 09:14 Dose: 10 ml Hydroxyzine HCl (Hydroxyzine Hcl 25 Mg Tablet) 25 mg PO Q6H PRN PRN Reason: mild anxiety Last Admin: 04/15/24 03:27 Dose: 25 mg Lamotrigine (Lamotrigine 100 Mg Tablet) 200 mg PO DAILY COUNT INCLUDES THE [facility] Last Admin: 04/15/24 09:18 Dose: 200 mg [place] Carbonate ([place] Carbonate Er 300 Mg Tablet.Er) 1,200 mg PO BEDTIME ALEX Last Admin: 04/14/24 20:54 Dose: 1,200 mg Loperamide HCl (Loperamide Hcl 2 Mg Capsule) 2 mg PO Q6H PRN PRN Reason: Loose Stool Last Admin: 04/11/24 16:03 Dose: 2 mg Magnesium Hydroxide (Milk Of Magnesia 30 Ml Oral.Susp) 30 ml PO DAILY PRN PRN Reason: Constipation Meclizine HCl (Meclizine Hcl 12.5 Mg Tablet) 12.5 mg PO DAILY PRN PRN Reason: Vertigo Last Admin: 04/15/24 03:27 Dose: 12.5 mg Nicotine (Nicotine 21 Mg Patch.Td24) 21 mg TRANSDERMA DAILY PRN PRN Reason: smoking cessation Nicotine Polacrilex (Nicotine Polacrilex 2 Mg Gum) 2 mg BUCCAL Q2H PRN PRN Reason: Nicotine Cravings Last Admin: 04/13/24 21:03 Dose: 2 mg Nicotine Polacrilex (Nicotine Polacrilex 2 Mg Gum) 4 mg BUCCAL Q2H PRN PRN Reason: Nicotine Cravings Last Admin: 04/14/24 21:19 Dose: 4 mg Olanzapine (Olanzapine 5 Mg Tablet) 5 mg PO TID PRN PRN Reason: agitation Last Admin: 04/15/24 03:26 Dose: 5 mg Ondansetron HCl (Ondansetron Odt 4 Mg Tab.Rapdis) 4 mg TRANSLINGU Q6H PRN PRN Reason: Nausea and Vomiting Last Admin: 04/14/24 22:29 Dose: 4 mg Oseltamivir Phosphate (Oseltamivir Phosphate 75 Mg Capsule) 75 mg PO Q12H ALEX Stop: 04/17/24 09:01 Last Admin: 04/15/24 09:18 Dose: 75 mg Prazosin HCl (Prazosin Hcl 1 Mg Capsule) 1 mg PO BEDTIME ALEX; Protocol Last Admin: 04/14/24 20:54 Dose: 1 mg Thiamine HCl (Thiamine Hcl 100 Mg Tablet) 100 mg PO DAILY ALEX Last Admin: 04/15/24 09:18 Dose: 100 mg Trazodone HCl (Trazodone Hcl 50 Mg Tablet) 50 mg PO BEDTIME MRX1 PRN PRN Reason: Insomnia Last Admin: 04/15/24 03:27 Dose: 50 mg Allergies Allergies Allergy/AdvReac Type Severity Reaction Status Date / Time No Known Allergies Allergy Verified 04/08/24 06:02 [No Known Allergies*] Assessment & Plan Assessment & Plan (1) Bipolar disorder: Status: Acute Code(s): F31.9 - Bipolar disorder, unspecified (2) PTSD (post-traumatic stress disorder): Status: Acute Code(s): F43.10 - Post-traumatic stress disorder, unspecified (3) Alcohol use disorder: Status: Acute Code(s): F10.90 - Alcohol use, unspecified, uncomplicated (4) TBI (traumatic brain injury): Status: Acute Code(s): S06.9XAA - Unspecified intracranial injury with loss of consciousness status unknown, initial encounter Plan HPI: Pt is a 43 yo male with hx of Bipolar dx, PtSD, TBI alcohol use disorder, who presents for depression and making SI statements in face of being off lithium and intoxication. Pt reports it's been a tough month and lists multiple psychosocial stressors including of a friend. About 2 weeks ago he ran out of [place] due to provider mix up (?) which has made it harder to cope w/ feelings. Pt reports he binge drinks only on weekends when not w/ daughter; this past weekend he was unable to see his beloved 10 yo daughter so started drinking and once intoxicated became agitated, slamming doors, yelling and making suicidal statements in front of his 17 yo step-son who called 911. At ED pt made suicidal statements as well. Now, pt says he must have blacked out, which is common, and does not remember saying any SI; he does not dispute it, but says he has not been had any actual SI at all and would never hurt himself, love of his daughters a strong protective factor. On going ptsd symptoms; denies other substance abuse except for cannabis; wants to get back on [place] Formulation/Clinical reasoning: Carries Bipolar dx and currently depressed from both psychosocial stressors and being off lithium. Will continue home meds and restart [place]. Sustained TBI last year and binge drinking both contributory -Regarding substance abuse treatment and risks discussed with patient who at this time patient declines MAT or help with outpt treatment options including programs; instead patient is choosing to work out sobriety on own -patient coughing and reports sudden onset of congestive cough; afebrile and WBC WNL however given recent intoxication, agitation and blackout will get chest x-ray to rule out possible aspiration pneumonia Hospital course: 3/5Patient reports mood is better; no SI. Patient says he slept well and appreciates lithium being moved to bedtime. Says he was drinking for about 2-3 days and denies any withdrawal Patient however complains of general malaise with worsen cough, SOB; RR 20 though afebrile Auscultation and movie writer appreciated b/l Wheeze/rhonic on exhalation - Hospitalist consult -ordering 2nd CXR since worsening symptoms (yesterdays unremarkable) -CBC -influenza positive 04/13 continue tx plan 04/14 Patient reports feeling much better, good mood and feeling ready to go. Flu symptoms subsiding. He had a fall last night where he only hit his right elbow and x-ray unremarkable. Patient feeling optimistic about sobriety feels good about medication regimen. Thankful for help received. Right elbow x-ray IMPRESSION: Unremarkable examination of the right elbow. Patient has remained in good behavioral and impulse control throughout his time in the unit. Depression abated and patient is in a good mood, optimistic and future oriented. He is returning home to a supportive family. Patient is not in imminent risk for harm to self or others and appropriate to return to the community for discharge. PLAN: CV q15min DC CIWA Continue home meds restart [place] ER -collateral Reports has been taking regularly: lamictal, Prozac, gabapentin, prazosin, +/2trazodone -no longer on Zyprexa (not sure if it ever helped) Reason for continued inpatient stay Substantial Risk for: stable for discharge Time Spent With Patient Time: Total time managing care of this patient today ____ minutes.
[2024-04-15] MEDS: Nicotine Polacrilex 2 MG GUM 4 MG BUCCAL (09:57)
[2024-04-15 12:43] LABS: Blood Urea Nitrogen 9 mg/dL (9-16); Creatinine Clr Calc Pharmacy 87.6; Estimated Glomerular Filt Rate > 60
[2024-04-15 12:59] LABS: TSH reflex Free T4 2.21 uIU/mL (0.32-4.0)
[2024-04-15 13:50] LABS: Lithium 0.89 mmol/L (0.60-1.20)
== END 2024-04-15 10:53 | disposition home or self-care (01) | DRG 753 ==
LOC: HO.ED 04-10 07:42 → HO.PM5 04-10 14:28
PROVIDERS: Nurse Practitioner Family; Student in an Organized Health Care Education/Training Program; Admitting Provider Psychiatry & Neurology Psychiatry; Emergency Provider Emergency Medicine; Visit Provider Psychiatry & Neurology Psychiatry
DX: F31.9 Bipolar disorder, unspecified (principal); R45.851 Suicidal ideations; F17.210 Nicotine dependence, cigarettes, uncomplicated; F43.10 Post-traumatic stress disorder, unspecified; T43.596A Underdosing of other antipsychotics and neuroleptics, initial encounter; F10.129 Alcohol abuse with intoxication, unspecified; J10.1 Influenza due to other identified influenza virus with other respiratory manifestations; Z71.6 Tobacco abuse counseling; Y90.8 Blood alcohol level of 240 mg/100 ml or more; Z87.820 Personal history of traumatic brain injury; Z20.822 Contact with and (suspected) exposure to COVID-19; Z79.899 Other long term (current) drug therapy
CPT/HCPCS: 0241U; 36415; 71045; 73080; 80053; 80061; 80178; 80307; 81003; 82565; 82947; 83036; 83690; 83735; 84443; 84520; 85025; 85610; 93005; 99285; S9485

== ENCOUNTER → 2024-04-10 08:22 | Outpatient (BNV) | payer MEDICAID, SELFPAY | PROVIDERS: Emergency Provider Emergency Medicine; Visit Provider Internal Medicine Cardiovascular Disease | DX: R94.31 Abnormal electrocardiogram [ECG] [EKG] (principal); R45.851 Suicidal ideations | CPT/HCPCS: 93010 ==

== ENCOUNTER 2024-04-10 14:27 | Outpatient (BNV) | payer MEDICAID, SELFPAY | END 2024-04-11 11:55 | PROVIDERS: Admitting Provider Psychiatry & Neurology Psychiatry; Emergency Provider Emergency Medicine; Visit Provider Radiology Diagnostic Radiology | DX: R05.9 Cough, unspecified (principal); R06.02 Shortness of breath | CPT/HCPCS: 71045 ==

== ENCOUNTER 2024-04-10 14:27 | Outpatient (BNV) | payer MEDICAID, SELFPAY | END 2024-04-12 10:44 | PROVIDERS: Admitting Provider Psychiatry & Neurology Psychiatry; Emergency Provider Emergency Medicine; Visit Provider Radiology Diagnostic Radiology | DX: R05.9 Cough, unspecified (principal); R06.02 Shortness of breath | CPT/HCPCS: 71045 ==

== ENCOUNTER 2024-04-10 14:27 | Outpatient (BNV) | payer MEDICAID, SELFPAY | END 2024-04-14 14:40 | PROVIDERS: Admitting Provider Psychiatry & Neurology Psychiatry; Emergency Provider Emergency Medicine; Visit Provider Radiology Diagnostic Radiology | DX: M25.521 Pain in right elbow (principal) | CPT/HCPCS: 73080 ==

== ENCOUNTER → 2024-04-10 14:27 | Outpatient (BNV) | payer OTHER, SELFPAY | PROVIDERS: Admitting Provider Psychiatry & Neurology Psychiatry; Emergency Provider Emergency Medicine; Visit Provider Psychiatry & Neurology Psychiatry | DX: F31.9 Bipolar disorder, unspecified (principal); F43.11 Post-traumatic stress disorder, acute; F10.90 Alcohol use, unspecified, uncomplicated; S06.9XAD Unspecified intracranial injury with loss of consciousness status unknown, subsequent encounter | CPT/HCPCS: 99232 ==